=== PATIENT | male | born 1950 | race Caucasian/White ===

== ENCOUNTER 2019-11-11 20:49 | Observation (INO) | payer OTHER ==
[~2019-11-11 20:49] MED LIST: Iopamidol 370 76% 100 ML VIAL ONE
[2019-11-11 21:21] LABS: #Basophils 0.1 thou/uL (0.0-0.2); #Eosinphils 0.1 thou/uL (0.0-0.7); #Monocytes 1.2 thou/uL (0.11-0.59); #Neutrophils 7.7 thou/uL (1.40-6.50); %Basophils 0.5 % (0.0-1.0); %Eosinophils 0.9 % (0.0-10.0); %Lymphocytes 18.5 % (21.0-51.0); %Monocytes 10.8 % (0.0-10.0); %Neutrophils 69.3 % (42.0-75.0); Mean Corpuscular HGB CONC 32.4 g/dL (32.0-36.0); Mean Corpuscular Hemoglobin 27.7 pg (27.0-31.0); Mean Corpuscular Volume 85.7 fL (78.0-98.0); Mean Platelet Volume 8.9 fL (7.4-10.4); Platelet Count 262 thou/uL (130-400); RBC Distribution Width 13.1 % (11.5-14.5); Red Blood Cell (RBC) Count 5.04 mill/uL (4.70-6.10); White Blood Cell (WBC) Count 11.1 thou/uL (4.8-10.8)
[2019-11-11] MEDS ORDERED: Ketorolac Tromethamine 30 MG/ML VIAL ONE (21:23)
[2019-11-11 21:44] LABS: ALT (SGPT) 29 U/L (8-55); AST (SGOT) 40 U/L (5-34); Alkaline Phosphatase 70 U/L (40-110); Anion Gap 17 mmol/L (10-20); BUN (Urea Nitrogen) 18 mg/dL (8.4-25.7); Bilirubin, Total 0.6 mg/dL (0.2-1.2); Calc. Creatinine Clearance 0 mL/min (70-130); Calcium 10.3 mg/dL (7.8-10.44); Carbon Dioxide 24 mmol/L (23-31); Chloride 101 mmol/L (98-107); Estimated GFR-MDRD 35; Globulin 3.5 g/dL (2.4-3.5); Glucose 121 mg/dL (80-115); Potassium 4.1 mmol/L (3.5-5.1); Protein, Total 7.5 g/dL (5.8-8.1); Sodium 138 mmol/L (136-145)
[2019-11-11 21:52] LABS: Magnesium 1.8 mg/dL (1.6-2.6)
--- NOTE | 2019-11-11 22:09 | CT ---
CT abdomen and pelvis with IV contrast HISTORY: Abdominal pain. FINDINGS: Tiny nonspecific subpleural nodule at the right anterolateral lung base. Tiny nonspecific c ystic lesion within the right liver lobe. No evidence of urinary tract abnormalities. No evidence of bowel obstruction or inflammation. Nonenlarged, nonspecific lymph nodes are present throughout the retroperitoneum. Degenerative changes throughout the lumbar spine. Calcification throughout the arterial structures. IMPRESSION : No acute abnormalities are demonstrated. Atherosclerosis.
[2019-11-11 22:10] LABS: CKMB 2.4 ng/mL (0-6.6)
--- NOTE | 2019-11-11 22:25 | PDOC.FPRHP ---
- History of Present Illness Chief Complaint: dizziness, presyncope History of Present Illness: 69yo CM with h/o IDDMII, CAD s/p CABG 2008 presents for dizziness and presyncope. 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 At about 1400 he had onset of dizziness/ lightheadedness. Rested and drank some fluids and then kept working. At about 1600 he stopped for the day and had worsening dizziness/lightheadedness and feeling like he was about to pass out. Went home and check BP, was 79/58 with HR 131. Rested and drank fluids and BP improved to 95/79. Sxs persisted so he called the [facility] who told him to come in to be seen. Denies any associated CP, SOB, diaphoresis, n/v. Feels like his heart was beating fast. States onset of sxs similar but less severe from when he had MA and CABG in 2008 and no associated pain. He was staying out of town 4 weeks ago and had onset of diarrhea, went to ED, given IVF. Since that time he has continued to have 3-4, loose, watery BM daily; sometimes unable to make it to the restroom in time. Currently on a 1wk course of antibiotics for infected toenail from [place]. ED Course: Give 1L NS with improvement of HR and BP. - Allergies/Adverse Reactions Allergies Allergy/AdvReac Type Severity Reaction Status Date / Time No Known Drug Allergies Allergy Verified 11/12/19 02:12 - Home Medications Medication Instructions Recorded Confirmed Type Atorvastatin Calcium 20 mg PO HS 11/11/19 11/11/19 History Clopidogrel Bisulfate [Plavix] 75 mg PO DAILY 11/11/19 11/11/19 History Cyclobenzaprine [Flexeril] 10 mg PO TID PRN 11/11/19 11/11/19 History Ferrous Sulfate 325 mg PO DAILY 11/11/19 11/11/19 History HYDROcodone/Acetaminophen [[place] 1 each PO Q6H PRN 11/11/19 11/11/19 History 10-325 Tablet] Insulin Glargine,Hum.Rec.Anlog 45 units SQ HS 11/11/19 11/12/19 History [Lantus] Mirtazapine 7.5 mg PO DAILY 11/11/19 11/11/19 History Venlafaxine HCl [Venlafaxine HCl 150 mg PO QAM 11/11/19 11/11/19 History ER] Insulin Glargine [Lantus Vial] 55 units SC HS vial 11/12/19 Rx Liraglutide [Victoza 3-Jono] 1.2 mg SC DAILY 11/12/19 11/12/19 History Tamsulosin HCl [Flomax] 0.4 mg PO DAILY 11/12/19 11/12/19 History - History PMHx: IDDMII, Depression, CAD, PVD, HTN, WPW s/p ablation PSHx: 4v CABG 2009, R carotid endarterectomy 2015, L knee, R carpal tunnel FHx: Dad of CVA Social: No tob, illicits, etoh. . Lives with , daughter, and son-in- law. - Review of Systems General: denies: fever/chills, weight/appetite/sleep changes, night sweats, fatigue Eyes: reports: vision changes ENT: denies: nasal congestion, rhinorrhea Respiratory: denies: cough, congestion, shortness of breath, exercise intolerance Cardiovascular: reports: palpitation. denies: chest pain, edema, paroxysmal nocturnal dyspnea, orthopnea Gastrointestinal: reports: diarrhea. denies: nausea, vomiting, constipation, abdominal pain Genitourinary: denies: incontinence, dysuria Skin: denies: rashes Musculoskeletal: reports: pain (chronic back pain) Neurological: reports: numbness (chronic peripherla neuropathy) Psychological: reports: depression (chronic, stable) - Vital signs BP: 93/57 -> 120/58 HR: 84 RR: 20 Tmax: 97.8 Pox: 98% on RA Wt: 106kg - Physical Exam Constitutional: NAD, awake, alert and oriented, well developed HEENT: normocephalic and atraumatic, EOMI, conjunctiva clear, no scleral icterus , grossly normal vision, grossly normal hearing, MMM Neck: supple, trachea midline Chest: no-tender to palpation Heart: RRR, normal S1/S2, no edema Lungs: CTAB, no respiratory distress, good air movement, no rales/rhonchi, no wheezing Abdomen: soft, bowel sounds present, no masses/distention, other (mild diffuse light palation, no rebound/guarding. Neg torrez sign.) Musculoskeletal: normal structure, normal tone Neurological: no focal deficit, other (decreased senstation to touch BL LE) Skin: no rash/lesions, other (multiple toenails on each foot removed, no erythema/drainage, warmth. Mild TTP) Heme/Lymphatic: no unusual bruising or bleeding Psychiatric: normal mood and affect, good judgment and insight, intact recent and remote memory FMR H&P: Results - Labs Result Diagrams: 11/12/19 03:20 11/12/19 13:50 Lab results: WBC 11.1 thou/uL (4.8-10.8) H 11/11/19 21:10 Hgb 14.0 g/dL (14.0-18.0) 11/11/19 21:10 Hct 43.2 % (42.0-52.0) 11/11/19 21:10 MCV 85.7 fL (78.0-98.0) 11/11/19 21:10 Plt Count 262 thou/uL (130-400) 11/11/19 21:10 Neutrophils % 69.3 % (42.0-75.0) 11/11/19 21:10 Sodium 138 mmol/L (136-145) 11/11/19 21:10 Potassium 4.1 mmol/L (3.5-5.1) 11/11/19 21:10 Chloride 101 mmol/L (98-107) 11/11/19 21:10 Carbon Dioxide 24 mmol/L (23-31) 11/11/19 21:10 BUN 18 mg/dL (8.4-25.7) 11/11/19 21:10 Creatinine 1.92 mg/dL (0.7-1.3) H 11/11/19 21:10 Glucose 121 mg/dL (80-115) H 11/11/19 21:10 Calcium 10.3 mg/dL (7.8-10.44) 11/11/19 21:10 Total Bilirubin 0.6 mg/dL (0.2-1.2) 11/11/19 21:10 AST 40 U/L (5-34) H 11/11/19 21:10 ALT 29 U/L (8-55) 11/11/19 21:10 Alkaline Phosphatase 70 U/L (40-110) 11/11/19 21:10 CK-MB (CK-2) 2.4 ng/mL (0-6.6) 11/11/19 21:20 B-Natriuretic Peptide 27.2 pg/mL (0-100) 11/11/19 21:10 Serum Total Protein 7.5 g/dL (5.8-8.1) 11/11/19 21:10 Albumin 4.0 g/dL (3.4-4.8) 11/11/19 21:10 Lipase 30 U/L (8-78) 11/11/19 21:10 - EKG Interpretation EKG: QTC 502, RBBB, 1st degree AV block, LA 400, no acute ST or T wave changes. - Radiology Interpretation CT scan - pelvis Status: report reviewed by me (no acute process) FMR H&P: A/P - Problem List (1) Pre-syncope Status: Acute (2) Elevated troponin Status: Acute Code(s): R79.89 - OTHER SPECIFIED ABNORMAL FINDINGS OF BLOOD CHEMISTRY (3) CAD (coronary artery disease) Status: Chronic Code(s): I25.10 - ATHSCL HEART DISEASE OF [place] CORONARY ARTERY W/O ANG PCTRS Qualifiers: Coronary Disease-Associated Artery/Lesion type: bypass graft Associated angina: without angina (4) PVD (peripheral vascular disease) Status: Chronic Code(s): I73.9 - PERIPHERAL VASCULAR DISEASE, UNSPECIFIED (5) DMII (diabetes mellitus, type 2) Status: Chronic Qualifiers: Diabetes mellitus mcc 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 #Presyncope - suspected orthostatic hypotension 2/2 dehydration from working outside and GI loss - BP improved with 1L NS in ED - Will cont IVF of LR @125cc/hr - obtain orthostatic vitals - fall precautions - will check TSH - hold home BP meds and other medications that can contribute to dizziness - possibly 2/2 polypharmacy #Indeterminate trop - Trop 0.105 - no baseline for comparison - h/o CAD and suspected CKDIII - likely troponin leak and chronic elevation - will trend trops, monitor on tele - consider cards consult in AM vs stress test #Chronic diarrhea - Diarrhea x4 weeks, history suspicions of onset of viral gastroenteritis that has since persisted - states had stool studies at onset that were negative - afebrile, diffuse tender abdomen but no acute exam findings - will order stool studies - Lytes stable, lipase negative #YOHAN vs CKD IIIb - Suspect CKDIIIb - Cr 1.92, GFR 35 - cont IVF and monitor, renally dose medications and avoid nephrotoxic meds - will check CPK #Prolonged QT - QTc 502, avoid QT prolonging meds #1st degree heart block - Associated RBB, suspected chronic with heart history - monitor on tele - history of WPW, s/p ablation #IDDMII - Lantus 55u QHS - Mild SS, ACHS accuchecks, hyperglycemic protocol #Depression - On mirtazapine and venlaflaxine - consider deesclatation and could contribute to dizziness and can contribute to QT prolongation #CAD s/p CABG, PVD - CABG 2008 - Cont plavix PCP: [facility] Code: Full IVF: LR @ 125cc/hr Diet: NPO @ [place] VTE: lovenox Disposition/LOS: Admit to tele obs for presyncope. Workup pending. Anticipate LOS < 48hrs. FMR H&P: Upper Level - Plan Date/Time: 11/11/19 8314 IKirill DO, have evaluated this patient and agree with findings/ plan as outlined by electrical engineering intern resident. Pertinent changes/additions are listed here. 69 yo M wi pmh of CAD s/p cabg in and HTN who presents after working outside for an extended period and becoming dizzy. No syncope. Labs show elevated cr. Pt reports resolution of symptoms after IVF. Will cont IVF and trend troponins. Expected LOS <48 hrs. Addendum - Attending - Attending Attestation Date/Time: 11/14/19 6439 I personally evaluated the patient and discussed the management with Dr. Salamanca on 11/11/19. I agree with the History, Examination, Assessment and Plan documented above with any addition or exceptions noted below. IDDMII, Depression, CAD, PVD, HTN, WPW s/p ablation here with presyncope and dizziness improved with IVF. Observe for dysrhythmia, cardiovascular causes for hypotension and symptoms.
[2019-11-12 01:04] LABS: Troponin I 0.107 ng/mL (< 0.028)
[2019-11-12] MEDS ORDERED: Lactated Ringer's 1,000 ML IV SCH (02:05)
[2019-11-12] MEDS ORDERED: Acetaminophen 325 MG TAB PO PRN (02:05)
[2019-11-12] MEDS ORDERED: Calcium Carbonate 500 MG ChewTAB PO PRN (02:05)
[2019-11-12] MEDS ORDERED: Dextrose 5% in Water 1,000 ML IV PRN (02:05)
[2019-11-12] MEDS ORDERED: HumaLOG 300 UNITS/3 ML VIAL SC PRN ×2 (02:05)
[2019-11-12] MEDS ORDERED: Dextrose 50% Abboject 50 ML SYRINGE SLOW IVP PRN (02:05)
[2019-11-12 02:30] VITALS: BMI 34.6
[2019-11-12] MEDS ORDERED: Mirtazapine 15 MG TAB PO SCH ×2 (02:30→21:00)
[2019-11-12 03:30] LABS: #Eosinphils 0.2 thou/uL (0.0-0.7); #Monocytes 0.5 thou/uL (0.11-0.59); #Neutrophils 4.1 thou/uL (1.40-6.50); %Basophils 0.6 % (0.0-1.0); %Eosinophils 2.8 % (0.0-10.0); %Lymphocytes 29.3 % (21.0-51.0); %Monocytes 7.2 % (0.0-10.0); %Neutrophils 60.1 % (42.0-75.0); Hemoglobin 13.5 g/dL (14.0-18.0); Mean Corpuscular HGB CONC 31.1 g/dL (32.0-36.0); Mean Corpuscular Hemoglobin 27.3 pg (27.0-31.0); Mean Corpuscular Volume 87.7 fL (78.0-98.0); Mean Platelet Volume 8.8 fL (7.4-10.4); Platelet Count 231 thou/uL (130-400); RBC Distribution Width 13.2 % (11.5-14.5); Red Blood Cell (RBC) Count 4.95 mill/uL (4.70-6.10); White Blood Cell (WBC) Count 6.9 thou/uL (4.8-10.8)
[2019-11-12 03:37] LABS: Hemoglobin A1c 6.8 % (4.0-6.0)
[2019-11-12 03:51] LABS: ALT (SGPT) 27 U/L (8-55); AST (SGOT) 35 U/L (5-34); Albumin 3.8 g/dL (3.4-4.8); Alkaline Phosphatase 69 U/L (40-110); Anion Gap 13 mmol/L (10-20); BUN (Urea Nitrogen) 20 mg/dL (8.4-25.7); Bilirubin, Total 0.6 mg/dL (0.2-1.2); Calc. Creatinine Clearance 62 mL/min (70-130); Calcium 9.6 mg/dL (7.8-10.44); Carbon Dioxide 28 mmol/L (23-31); Cardiac Risk 4.2 (Less than 4.5); Chloride 100 mmol/L (98-107); Cholesterol 130 mg/dl (< 200 Desired); Estimated GFR-MDRD 38; Globulin 3.3 g/dL (2.4-3.5); Glucose 187 mg/dL (80-115); HDL Cholesterol 31 mg/dL (>60 Neg Risk); LDL Cholesterol, Calculated 63 mg/dL; Potassium 4.4 mmol/L (3.5-5.1); Protein, Total 7.1 g/dL (5.8-8.1); Sodium 137 mmol/L (136-145); Triglycerides 179 mg/dL (Less than 150)
--- NOTE | 2019-11-12 06:51 | PDOC.FM ---
- Subjective Subjective: Was able to fall asleep this morning around 4am. Feeling better after IVF. Denies SOB, chest pain. He is currently on oxygen via nasal cannula due to his ROSINA, he wears a CPAP at night at home. No presyncopal episodes since admission. - Objective MAR Reviewed: Yes Vital Signs & Weight: Vital Signs (12 hours) Pulse BP BP BP 11/12/19 04:32 57 L 136/77 129/60 154/65 H Weight Weight 109.406 kg Result Diagrams: 11/12/19 03:20 11/12/19 03:20 Phys Exam - Physical Examination Constitutional: NAD HEENT: moist MMs Neck: supple Respiratory: no wheezing, clear to auscultation bilateral Cardiovascular: RRR, no significant murmur Gastrointestinal: soft, non-tender Musculoskeletal: no edema Neurological: moves all 4 limbs Psychiatric: normal affect, A&O x 3 Skin: no rash Dx/Plan - Plan Plan: 69yo male with pmh IDDMII, CAD s/p CABG 2008 presents for dizziness and presyncope. Presyncope likely 2/2 orthostatic hypotension and dehydration - LR @125cc/hr - holding home BP meds - Recheck Cr later today, if asymptomatic can discharge home. Indeterminate trop - Trop 0.105, 0.1 - EKG no signs of ischemia - h/o CAD Chronic diarrhea - Diarrhea x4 weeks, history suspicions of onset of viral gastroenteritis that has since persisted - Ordered stool studies YOHAN vs CKD IIIb - Cont IVF and monitor, renally dose medications and avoid nephrotoxic meds Prolonged QT - QTc 502, avoid QT prolonging meds 1st degree heart block - Associated RBB, suspected chronic with heart history - history of WPW, s/p ablation IDDMII - Lantus 55u qHS - Mild SS, ACHS accuchecks, hyperglycemic protocol Depression - On mirtazapine and venlaflaxine CAD s/p CABG, PVD - CABG 2008 - Continue plavix PCP: [facility] Code Status: Full DVT ppx: Lovenox Addendum - Attending - Attending Attestation Date/Time: 11/12/19 1040 I personally evaluated the patient and discussed the management with Dr. Queen. I agree with the History, Examination, Assessment and Plan documented above with any addition or exceptions noted below - Patient feeling better. No further dizziness. Afebrile VSS. A/P: 1) YOHAN- continue IVF. recheck basmet later today. Encourage po intake. 2) Indeterminate troponins- most likely due to elevated Cr. 3) DM- continue home meds.
[2019-11-12] MEDS ORDERED: Venlafaxine HCl XR 150 MG CAP PO SCH (09:00)
[2019-11-12] MEDS ORDERED: Liraglutide [Victoza 3-Pak] 1.2 MG SC SCH (09:00)
[2019-11-12] MEDS ORDERED: Clopidogrel Bisulfate 75 MG TAB PO SCH (09:00)
[2019-11-12] MEDS ORDERED: Prevnar 13-Val Conj/PF 0.5 ML SYRINGE IM ONE (09:00)
[2019-11-12] MEDS ORDERED: Enoxaparin Sodium 30 MG/0.3 ML SYRINGE SC SCH (09:00)
[2019-11-12 11:42] VITALS: BP 144/64; TEMP 97.9
[2019-11-12 14:20] LABS: Anion Gap 12 mmol/L (10-20); BUN (Urea Nitrogen) 20 mg/dL (8.4-25.7); Calc. Creatinine Clearance 78 mL/min (70-130); Carbon Dioxide 28 mmol/L (23-31); Chloride 100 mmol/L (98-107); Estimated GFR-MDRD 49; Glucose 173 mg/dL (80-115); Sodium 136 mmol/L (136-145)
[2019-11-12] MEDS ORDERED: Insulin Glargine 55 UNITS in Pre-Filled Syringe 1 EACH SC SCH (21:00)
[2019-11-12] MEDS ORDERED: Atorvastatin Calcium 20 MG TAB PO SCH (21:00)
--- NOTE | 2019-11-14 02:12 | DIS ---
DATE OF ADMISSION: 11/11/2019 DATE OF DISCHARGE: 11/12/2019 RESIDENT: Kandis Queen MD, PGY-2. ADMITTING ATTENDING: Simona Borden MD DISCHARGE ATTENDING: Simona Borden MD CONSULTS: None. PROCEDURES PERFORMED: Abdomen and pelvis CT 11/11/2019, no acute abnormalities demonstrated. PRIMARY DIAGNOSES: 1. Presyncope, likely secondary to orthostatic hypotension and dehydration. 2. Indeterminate troponin. 3. Acute kidney injury. SECONDARY DIAGNOSES: 1. Chronic diarrhea. 2. Prolonged QT. 3. First-degree heart block. 4. Insulin-dependent type 2 diabetes. 5. Depression. 6. Coronary artery disease status post coronary artery bypass grafting DISCHARGE MEDICATIONS: 1. Atorvastatin 20 mg at bedtime. 2. Plavix 75 mg daily. 3. Flexeril 10 mg t.i.d. 4. Ferrous sulfate 325 daily. 5. [place] 10-325 q.6 hours p.r.n. 6. Insulin glargine 55 units at bedtime. 7. Victoza 1.2 mg subcu daily. 8. Mirtazapine 7.5 mg daily. 9. Tamsulosin 0.4 mg daily. 10. Venlafaxine 150 mg q.a.m. DISCONTINUED MEDICATIONS: Insulin 45 units daily. HISTORY OF PRESENT ILLNESS/HOSPITAL COURSE: Mr. Owens is a 69-year-old male, who presented with dizziness and presyncope after working outside in the heat all day. He had no concerning symptoms of coronary cause of his presyncope. He was given 1 L normal saline in the ED with improvement of heart rate and blood pressure as he was initially hypotensive and tachycardic. His blood pressure on admission was 120/58. His labs at admission were notable for creatinine 1.92, 1.43 at discharge. Noted to have a normal TSH. His initial troponin was 0.105, 0.1. He was continued on IV fluids of LR at 125 and was tolerating oral hydration well. Orthostatics were negative and he was able to ambulate without symptoms prior to discharge. His blood pressure medications were held and he can follow up with primary care doctor to restart these. Next, indeterminate second troponin trended down. His EKG was notable for a first-degree heart block and a prolonged QT. His YOHAN initially had creatinine 1.92. After rehydration, this improved. Recommend rechecking outpatient within 2 weeks of discharge. He was noted to have a prolonged QT and first-degree heart block with associated right bundle branch block. His was monitored on tele. He does have a history of [id number]-Nhrgj, status post ablation. In regard to his chronic medical problems of diabetes, depression and coronary artery disease, he was continued on home medication. He had also been having loose stools for four weeks. However, he did not have a stool during hospitalization. Therefore, stool studies were never collected and precautions were discontinued as he was not having diarrhea. DISPOSITION: Stable. DISCHARGE INSTRUCTIONS: 1. Location: Home. 2. Diet: Heart healthy, carb consistent. 3. Activity: Avoid strenuous outdoor activity to maintain hydration and encourage p.o. hydration. 4. Followup: Follow up with PCP at the [facility] within 7 days. Job ID: [id number] MTDD
--- NOTE | 2019-11-19 11:53 | EKG ---
Test Reason : Blood Pressure : / mmHG Vent. Rate : 104 BPM Atrial Rate : 104 BPM P-R Int : 000 ms QRS Dur : 142 ms QT Int : 382 ms P-R-T Axes : 071 -66 069 degrees QTc Int : 502 ms Sinus tachycardia with 1st degree A-V block Right bundle branch block Left anterior fascicular block Bifascicular block Abnormal ECG Confirmed by JOSE ANGEL KUMARI ([id number]), editor magazine AN HUNTLEY ([id number]) on 11/19/2019 11:52:50 AM Referred By: Confirmed By:JOSE ANGEL Ortega
== END 2019-11-12 15:43 | disposition home or self-care (01) ==
LOC: ERS 20:49 → 2SE 22:25
PROVIDERS: ADMIT Family Medicine; ATTEND Family Medicine
DX: R55 Syncope and collapse (principal); R79.89 Other specified abnormal findings of blood chemistry; N17.9 Acute kidney failure, unspecified; E11.9 Type 2 diabetes mellitus without complications; I25.10 Atherosclerotic heart disease of native coronary artery without angina pectoris; I44.0 Atrioventricular block, first degree; I73.9 Peripheral vascular disease, unspecified; K52.9 Noninfective gastroenteritis and colitis, unspecified; F32.9 Major depressive disorder, single episode, unspecified; Z79.4 Long term (current) use of insulin; Z79.899 Other long term (current) drug therapy; Z95.1 Presence of aortocoronary bypass graft
CPT/HCPCS: 36415; 36416; 74177; 80053; 80061; 82550; 82553; 83036; 83690; 83735; 83880; 84443; 84484; 85025; 93005; 94760; 96361; 96374; G0378; J1815; J1885; Q9967

== ENCOUNTER 2019-11-29 11:21 | Observation (INO) | payer MEDICARE, OTHER ==
[2019-11-29 12:14] LABS: #Basophils 0.1 thou/uL (0.0-0.2); #Eosinphils 0.2 thou/uL (0.0-0.7); #Lymphocytes 1.4 thou/uL (1.20-3.40); #Monocytes 0.6 thou/uL (0.11-0.59); #Neutrophils 4.1 thou/uL (1.40-6.50); %Eosinophils 3.7 % (0.0-10.0); %Lymphocytes 22.5 % (21.0-51.0); %Monocytes 8.8 % (0.0-10.0); %Neutrophils 63.9 % (42.0-75.0); Hemoglobin 12.5 g/dL (14.0-18.0); Mean Corpuscular HGB CONC 30.8 g/dL (32.0-36.0); Mean Corpuscular Hemoglobin 27.1 pg (27.0-31.0); Mean Corpuscular Volume 87.9 fL (78.0-98.0); Mean Platelet Volume 8.3 fL (7.4-10.4); Platelet Count 228 thou/uL (130-400); RBC Distribution Width 13.1 % (11.5-14.5); Red Blood Cell (RBC) Count 4.61 mill/uL (4.70-6.10); White Blood Cell (WBC) Count 6.4 thou/uL (4.8-10.8)
--- NOTE | 2019-11-29 12:15 | RAD ---
EXAM: CHEST ONE VIEW HISTORY: Dyspnea. Abnormal EKG COMPARISON: 03/26/2012 FINDINGS: Postoperative changes related to CABG are noted. Cardiac silhouette is magnified by projection but do es appear mildly enlarged. The pulmonary vasculature is within normal limits. The lungs are clear. Mild degenerative changes are seen in the spine. Surgical clips overlie the right neck. IMPRESSION: 1. Mild cardiomegaly. 2. No acute cardiopulmonary process.
[2019-11-29 12:36] LABS: ALT (SGPT) 14 U/L (8-55); AST (SGOT) 24 U/L (5-34); Albumin 3.9 g/dL (3.4-4.8); Alkaline Phosphatase 73 U/L (40-110); Anion Gap 11 mmol/L (10-20); BUN (Urea Nitrogen) 7 mg/dL (8.4-25.7); Bilirubin, Total 0.9 mg/dL (0.2-1.2); Calc. Creatinine Clearance 0 mL/min (70-130); Calcium 8.9 mg/dL (7.8-10.44); Carbon Dioxide 28 mmol/L (23-31); Chloride 104 mmol/L (98-107); Estimated GFR-MDRD 70; Globulin 3.5 g/dL (2.4-3.5); Glucose 112 mg/dL (80-115); Potassium 3.9 mmol/L (3.5-5.1); Protein, Total 7.4 g/dL (5.8-8.1); Sodium 139 mmol/L (136-145)
--- NOTE | 2019-11-29 13:21 | PDOC.FPRHP ---
- History of Present Illness Chief Complaint: SOB with Exertion History of Present Illness: 69yo CM with h/o IDDMII, CAD s/p CABG 2008 presents for SOB with exertion for the last couple of days. He says he started feeling short of breath Thursday & Thursday, but it has somewhat improved today. He says he feels short of breath just walking a few feet. He [facility] to go to [facility], but they were not taking acute visits so he went to an urgent care. He was seen at an urgent care earlier today and had and EKG and chest xray. There they noted he had small bilateral effusions and told him to come to the ER. ED Course: In the ED, Cxray showed Cardiomegaly. Trop was 0.033, BNP was 235.5, and Hgb was 12.5. He was given ASA & a nitro patch. - Allergies/Adverse Reactions Allergies Allergy/AdvReac Type Severity Reaction Status Date / Time No Known Drug Allergies Allergy Verified 11/12/19 02:12 - Home Medications Medication Instructions Recorded Confirmed Type Atorvastatin Calcium 20 mg PO HS 11/11/19 11/29/19 History Clopidogrel Bisulfate [Plavix] 75 mg PO DAILY 11/11/19 11/29/19 History Cyclobenzaprine [Flexeril] 10 mg PO TID PRN 11/11/19 11/29/19 History Mirtazapine 7.5 mg PO HS 11/11/19 11/29/19 History Venlafaxine HCl [Venlafaxine HCl 150 mg PO QAM 11/11/19 11/29/19 History ER] Liraglutide [Victoza 3-Jono] 1.2 mg SC DAILY 11/12/19 11/29/19 History Tamsulosin HCl [Flomax] 0.4 mg PO DAILY 11/12/19 11/29/19 History Acetaminophen 500 mg PO TID PRN 11/29/19 11/29/19 History Blood Sugar Diagnostic [True 1 strip SC ACHS 11/29/19 11/29/19 History Metrix Pro Test Strip] Cholecalciferol [Vitamin D3] 4,000 units PO DAILY 11/29/19 11/29/19 History Cyanocobalamin (Vitamin B-12) 1,000 mcg PO DAILY 11/29/19 11/29/19 History [Vitamin B-12] Ferrous Sulfate [Iron] 325 mg PO DAILY 11/29/19 11/29/19 History HYDROcodone/Acetaminophen 1 tab PO Q6H PRN 11/29/19 11/29/19 History [Hydrocodone-Acetamin 10-325 mg] Insulin Glargine [Lantus] 45 units SC HS 11/29/19 11/29/19 History Lidocaine 5% Patch [Lidoderm 5% 1 patch TD DAILY 11/29/19 11/29/19 History Patch] Melatonin 10 mg PO HS 11/29/19 11/29/19 History Metoprolol Tartrate 50 mg PO HS 11/29/19 11/29/19 History - History PMHx: DMII, Depression, CAD, PVD, HTN, WPW s/p ablation PSHx: 4-vessel CABG 2008, Right carotid endarterectomy 2014, L knee, R carpal tunnel, Ablation for WPW FHx: Dad of CVA Social: No tobacco, alcohol, or recreational drugs. . Lives with , daughter, and son-in-law. - Review of Systems General: denies: fever/chills Eyes: denies: vision changes ENT: denies: nasal congestion, rhinorrhea Respiratory: reports: shortness of breath. denies: cough, congestion Cardiovascular: reports: chest pain, edema, orthopnea. denies: paroxysmal nocturnal dyspnea Gastrointestinal: denies: nausea, vomiting, diarrhea, constipation, abdominal pain Skin: denies: rashes, lesions Musculoskeletal: denies: pain, tenderness Neurological: reports: numbness (in the bottom of his feet). denies: weakness Psychological: reports: depression - Vital signs BP: 162/62 HR: 62 RR: 18 Tmax: 98.2 Pox: 100% on RA Wt: 111.13 kg - Physical Exam Constitutional: NAD, awake, alert and oriented HEENT: normocephalic and atraumatic, PERRLA, EOMI, conjunctiva clear, no scleral icterus, MMM, oropharynx clear, good dention Neck: no LAD -Neck: Limited ROM of the neck Heart: RRR, normal S1/S2, no murmurs/rubs/gallops, pulses present -Heart: 1+ pitting edema Lungs: CTAB, no respiratory distress, good air movement, no rales/rhonchi, no wheezing, no retractions Abdomen: soft, non-tender, bowel sounds present Musculoskeletal: normal structure, normal tone Neurological: CN II-XII intact, normal sensation Skin: no rash/lesions, good turgor Heme/Lymphatic: no unusual bruising or bleeding, no purpura, no petechia Psychiatric: normal mood and affect FMR H&P: Results - Labs Result Diagrams: 11/29/19 12:07 11/30/19 01:59 Lab results: WBC 6.4 thou/uL (4.8-10.8) 11/29/19 12:07 Hgb 12.5 g/dL (14.0-18.0) L 11/29/19 12:07 Hct 40.5 % (42.0-52.0) L 11/29/19 12:07 MCV 87.9 fL (78.0-98.0) 11/29/19 12:07 Plt Count 228 thou/uL (130-400) 11/29/19 12:07 Neutrophils % 63.9 % (42.0-75.0) 11/29/19 12:07 Sodium 139 mmol/L (136-145) 11/29/19 12:07 Potassium 3.9 mmol/L (3.5-5.1) 11/29/19 12:07 Chloride 104 mmol/L (98-107) 11/29/19 12:07 Carbon Dioxide 28 mmol/L (23-31) 11/29/19 12:07 BUN 7 mg/dL (8.4-25.7) L 11/29/19 12:07 Creatinine 1.06 mg/dL (0.7-1.3) 11/29/19 12:07 Glucose 112 mg/dL (80-115) 11/29/19 12:07 Calcium 8.9 mg/dL (7.8-10.44) 11/29/19 12:07 Total Bilirubin 0.9 mg/dL (0.2-1.2) 11/29/19 12:07 AST 24 U/L (5-34) 11/29/19 12:07 ALT 14 U/L (8-55) 11/29/19 12:07 Alkaline Phosphatase 73 U/L (40-110) 11/29/19 12:07 CK-MB (CK-2) 2.0 ng/mL (0-6.6) 11/29/19 12:07 B-Natriuretic Peptide 235.5 pg/mL (0-100) H 11/29/19 12:07 Serum Total Protein 7.4 g/dL (5.8-8.1) 11/29/19 12:07 Albumin 3.9 g/dL (3.4-4.8) 11/29/19 12:07 - EKG Interpretation EKG: RBBB, Left axis deviation FMR H&P: A/P - Problem List (1) Heart failure Current Visit: Yes Status: Acute Code(s): I50.9 - HEART FAILURE, UNSPECIFIED (2) Elevated troponin Current Visit: No Status: Acute Code(s): R79.89 - OTHER SPECIFIED ABNORMAL FINDINGS OF BLOOD CHEMISTRY (3) CAD (coronary artery disease) Current Visit: No Status: Chronic Code(s): I25.10 - ATHSCL HEART DISEASE OF [place] CORONARY ARTERY W/O ANG PCTRS Qualifiers: Coronary Disease-Associated Artery/Lesion type: bypass graft Associated angina: without angina (4) DMII (diabetes mellitus, type 2) Current Visit: No Status: Chronic 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 use Diabetes mellitus complication status: with kidney complications Diabetes mellitus complication detail: with chronic kidney disease Chronic kidney disease stage : stage 3 (moderate) Qualified Code(s): E11.22 - Type 2 diabetes mellitus with diabetic chronic kidney disease; N18.3 - Chronic kidney disease, stage 3 ( moderate); 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 1. Suspected HF SOB with exertion, Orthopnea, 1+ pitting Edema * IV Lasix 20 mg * Strict I&Os, daily weights * HHLSo diet * ECHO ordered 2.Indeterminate trop Trop 0.033 (last admission 0.105) * H/o CAD with CABG in 2008 * Nonspecific CP: substernal CP that resolved without radiation and no change with nitro * Will trend trops, monitor on tele * Lipid Panel & TSH done last visit wnl 3. DMII Continue home medications: Lantus 55u QHS * Mild SS, ACHS accuchecks, hyperglycemic protocol 4. Depression Continue home medications: Mirtazapine and Venlaflaxine 5. CAD s/p CABG, PVD CABG 2008 * Continue home medications: Plavix, Atorvastatin, & Metoprolol * Started ASA 6. Chronic Pain Continue home medication: [place] 10 Code Status: Full IVF: LR @ 125cc/hr Diet: HHLSo with CC VTE: lovenox [facility] Dispo: Admit to tele obs for suspected new onset heart failure. Await ECHO results. LOS < 48hrs. FMR H&P: Upper Level - Plan Date/Time: 11/29/19 1320 I, Emily Echols, have evaluated this patient and agree with findings/plan as outlined by internet programmer resident. Pertinent changes/additions are listed here. 69 yo M with PMH CAD s/p CABG and IDDM2 presents for SOB present x3 days. SOB present with nearly any amount of exertion, including walking to bathroom. Denies SOB at rest. Symptoms started to improve yesterday. [facility] be seen at urgent care. There had CXR with small b/l pleural effusions and was sent here. He was swabbed for COVID at that facility. Notes he had mild intermittent chest pains associated with his SOB. Has not had any CP since earlier this morning. No N, V, D, abdominal pain, diaphoresis. 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 Patient unsure of name. Has appt in 2-3 days for yearly checkup with plan for echo and stress at that appt. Discharged earlier this month, admitted for near syncope 2/2 dehydration. Since then ARB discontinued and restarted metoprolol. Given ASA and nitro patch in ED PMH: IDDM2, depression, CAD s/p CABG, chronic diarrhea, 1st degree heart block, prolonged QT, PVD, HTN, WPW s/p ablation Surg: CABG x4 2009, R carotid endarterectomy 2015, L knee, R carpal tunnel Famhx: Father of CVA Social: no tobacco,alcohol, drug use VS: 162/62, 18, 98.2, 100% on RA, 62 CXR: mild cardiomegaly EK, QTc 476, RBBB, 1st degree AV block, bifascicular block PE: Gen: NAD HEENT: limited cervical motion Heart: RRR, no murmur Lungs: CTAB Ext: 1+ pitting edema BLE up to knee Concern for new onset CHF - SOB w/ exertion with cardiomegaly on CXR. No hypoxia. - BNP elevated 235 (was 27 last admission) - Echo ordered - Lipids, TSH, A1c ordered on last admission and wnl - give 20mg IV lasix and reassess volume status in am. Monitor I/Os. - Has appt this week with foaming machine operator with plan for stress and echo Indeterminate troponin - 0.033 on admission, will trend. No chest pain or concern for ACS at this time. EKG similar to prior. - Was 0.1 on last admission, could have chronic leak CAD s/p CABG -Continue home Plavix, statin Chronic medical problems reviewed. Continue home medications. Diet: HH, CC Ppx: Lovenox IVF: SL Code: FULL Dispo: admit to telemetry for observation. Trend troponin and pending workup. Expected LOS <48hrs. Addendum - Attending - Attending Attestation Date/Time: 11/30/19 0905 I personally evaluated the patient and discussed the management with the team. I agree with the History, Examination, Assessment and Plan documented above with any addition or exceptions noted below. On exam seems to clinically be HF. Edema BLE, mild JVD, scant crackles in bilateral bases. Will diurese, perform TTE. Consider stress or cards consultation pending clinical course.
[2019-11-29] MEDS ORDERED: Nitroglycerin 2% Ointment 1 INCH/1 GM Packet ONE (13:24)
[2019-11-29] MEDS ORDERED: Aspirin Chewable 81 MG TAB ONE (13:24)
[2019-11-29] MEDS ORDERED: Ondansetron ODT 4 MG TAB PO PRN (14:26)
[2019-11-29] MEDS ORDERED: Calcium Carbonate 500 MG ChewTAB PO PRN (14:26)
[2019-11-29] MEDS ORDERED: Ondansetron PF 4 MG/2 ML Vial IVP PRN (14:26)
[2019-11-29] MEDS ORDERED: Senokot S 8.6-50 MG TAB PO PRN (14:26)
[2019-11-29] MEDS ORDERED: Acetaminophen 325 MG TAB PO PRN (14:26)
[2019-11-29] MEDS ORDERED: Dextrose 5% in Water 1,000 ML IV PRN (14:31)
[2019-11-29] MEDS ORDERED: HumaLOG 300 UNITS/3 ML VIAL SC PRN ×2 (14:31)
[2019-11-29] MEDS ORDERED: Dextrose 50% Abboject 50 ML SYRINGE SLOW IVP PRN (14:31)
[2019-11-29 16:13] LABS: Troponin I 0.023 ng/mL (< 0.028)
[2019-11-29] MEDS ORDERED: Cyclobenzaprine 10 MG TAB PO PRN (16:29)
[2019-11-29] MEDS ORDERED: HYDROcodone/Acetaminophen 10/325 mg Tablet PO PRN (16:29)
[2019-11-29 16:55] VITALS: BMI 35.8
[2019-11-29] MEDS: HumaLOG 300 UNITS/3 ML VIAL SC PRN (18:05)
[2019-11-29] MEDS: Insulin Glargine 55 UNITS in Pre-Filled Syringe 1 EACH SC SCH (21:30)
[2019-11-29] MEDS: Atorvastatin Calcium 20 MG TAB PO SCH (21:42)
[2019-11-29] MEDS ORDERED: Mirtazapine 15 MG TAB PO SCH (23:45)
[2019-11-30 02:35] LABS: Anion Gap 11 mmol/L (10-20); BUN (Urea Nitrogen) 14 mg/dL (8.4-25.7); Calc. Creatinine Clearance 109 mL/min (70-130); Calcium 8.2 mg/dL (7.8-10.44); Carbon Dioxide 27 mmol/L (23-31); Chloride 105 mmol/L (98-107); Estimated GFR-MDRD 70; Glucose 94 mg/dL (80-115); Potassium 3.8 mmol/L (3.5-5.1); Sodium 139 mmol/L (136-145)
[2019-11-30 02:54] LABS: CKMB 1.5 ng/mL (0-6.6)
--- NOTE | 2019-11-30 05:54 | PDOC.FM ---
- Subjective Subjective: He still feels short of breath this morning. He has not had BM in a couple of days. He denies any chest pain. He is tolerating PO intake well. He did not sleep well last night due to not having his CPAP. - Objective MAR Reviewed: Yes Vital Signs & Weight: Vital Signs (12 hours) Temp Pulse Resp BP BP Pulse Ox 11/30/19 04:00 97.6 F 62 16 126/61 96 11/30/19 00:00 97.6 F 66 16 151/73 H 93 L 11/29/19 20:00 98.7 F 59 L 16 140/72 93 L Weight Weight 113.398 kg I&O: 11/28/19 11/29/19 11/30/19 06:59 06:59 06:59 Intake Total 240 Balance 240 Result Diagrams: 11/29/19 12:07 11/30/19 01:59 EKG Reviewed by me: Yes (Sinus Kevin- Sinus Rhythm with 1st degree AVB) Phys Exam - Physical Examination Constitutional: NAD HEENT: moist MMs, sclera anicteric, oral pharynx no lesions Neck: no nodes, supple Respiratory: wheezing present Cardiovascular: RRR, no significant murmur, no rub Gastrointestinal: soft, non-tender, positive bowel sounds Musculoskeletal: pulses present Neurological: moves all 4 limbs Lymphatic: no nodes Psychiatric: normal affect Skin: no rash, normal turgor Dx/Plan (1) Heart failure Code(s): I50.9 - HEART FAILURE, UNSPECIFIED Status: Acute (2) Elevated troponin Code(s): R79.89 - OTHER SPECIFIED ABNORMAL FINDINGS OF BLOOD CHEMISTRY Status : Acute (3) CAD (coronary artery disease) Code(s): I25.10 - ATHSCL HEART DISEASE OF [place] CORONARY ARTERY W/O ANG PCTRS Status: Chronic Qualifiers: Coronary Disease-Associated Artery/Lesion type: bypass graft Associated angina: without angina (4) DMII (diabetes mellitus, type 2) Status: Chronic 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 1. Suspected HF SOB with exertion, Orthopnea, 1+ pitting Edema * IV Lasix 20 mg * Strict I&Os, daily weights * HHLSo diet * ECHO ordered 2.Indeterminate trop Trop 0.033 > 0.023 > 0.04 > 0.032 (last admission 0.105) * H/o CAD with CABG in 2008 * Nonspecific CP: substernal CP that resolved without radiation and no change with nitro * Lipid Panel & TSH done last visit wnl * He is scheduled for a Stress test outpatient with his road manager and was supposed to have an ECHO this week. 3. DMII Continue home medications: Lantus 55u QHS * Mild SS, ACHS accuchecks, hyperglycemic protocol 4. Depression Continue home medications: Mirtazapine and Venlaflaxine 5. CAD s/p CABG, PVD CABG 2008 * Continue home medications: Plavix, Atorvastatin, & Metoprolol * Started ASA 6. Chronic Pain Continue home medication: [place] 10 Code Status: Full IVF: SL Diet: HHLSo with CC VTE: lovenox PCP: [facility] Dispo: Tele obs for suspected new onset heart failure. Will get ECHO results and based upon that we will consult Cardiology. LOS < 48hrs. Addendum - Attending - Attending Attestation Date/Time: 11/30/19 8995 I personally evaluated the patient and discussed the management with Dr. Salamanca. I agree with the History, Examination, Assessment and Plan documented above with any addition or exceptions noted below. Patient denies complaints this morning, reports breathing overall stable. Increased BNP from baseline. Echo today and further mgmt pending that result. I do not see that he has ever had stress testing before so that may be needed.
[2019-11-30] MEDS ORDERED: Furosemide 20 MG/2 ML VIAL SLOW IVP SCH (06:00)
[2019-11-30] MEDS: Clopidogrel Bisulfate 75 MG TAB PO SCH (08:48)
[2019-11-30] MEDS: Venlafaxine HCl XR 150 MG CAP PO SCH (08:48)
[2019-11-30] MEDS: Aspirin Chewable 81 MG TAB PO SCH (08:48)
[2019-11-30] MEDS: Tamsulosin HCl 0.4 MG CAP PO SCH (08:48)
[2019-11-30] MEDS: Enoxaparin Sodium 40 MG/0.4 ML SYRINGE SC SCH (08:48)
[2019-11-30] MEDS: Ferrous Sulfate 325 MG TAB PO SCH (08:48)
[2019-11-30] MEDS ORDERED: Mirtazapine 15 MG TAB PO SCH (09:00)
[2019-11-30] MEDS ORDERED: Non-Formulary Item 1 EACH (Liraglutide [Victoza 3-Pak] 1.2 MG) SC SCH (09:00)
[2019-11-30] MEDS ORDERED: hydrALAZINE 20 MG/ML VIAL SLOW IVP PRN (12:24)
[2019-11-30] MEDS: HumaLOG 300 UNITS/3 ML VIAL SC PRN (13:00)
[2019-11-30] MEDS: Atorvastatin Calcium 20 MG TAB PO SCH (21:45)
[2019-11-30] MEDS: Mirtazapine 15 MG TAB PO SCH (21:45)
[2019-11-30] MEDS ORDERED: Insulin Glargine 40 UNITS in Pre-Filled Syringe 1 EACH SC SCH (22:00)
[2019-11-30] MEDS: Insulin Glargine 55 UNITS in Pre-Filled Syringe 1 EACH SC SCH (23:22)
--- NOTE | 2019-12-01 06:04 | PDOC.FM ---
- Subjective Subjective: He's breathing better. He did not sleep well. He is eating well. - Objective MAR Reviewed: Yes Vital Signs & Weight: Vital Signs (12 hours) Temp Pulse Resp BP BP Pulse Ox 12/01/19 04:25 61 166/70 H 12/01/19 04:00 97.7 F 69 16 196/87 H 94 L 11/30/19 23:54 98.5 F 72 16 171/69 H 93 L 11/30/19 20:00 98.6 F 80 16 190/78 H 97 Weight Weight 113.398 kg I&O: 11/29/19 11/30/19 12/01/19 06:59 06:59 06:59 Intake Total 540 700 Output Total 300 Balance 540 400 Result Diagrams: 11/29/19 12:07 12/01/19 07:03 EKG Reviewed by me: Yes (SR with 1st degree AVB) Phys Exam - Physical Examination Constitutional: NAD HEENT: moist MMs, sclera anicteric, oral pharynx no lesions Neck: no nodes, supple Respiratory: no wheezing, no rales, no rhonchi, clear to auscultation bilateral Cardiovascular: RRR, no significant murmur, no rub Gastrointestinal: soft, non-tender, positive bowel sounds Musculoskeletal: no edema, pulses present Neurological: moves all 4 limbs Psychiatric: normal affect Skin: no rash, normal turgor Dx/Plan (1) Heart failure Code(s): I50.9 - HEART FAILURE, UNSPECIFIED Status: Acute (2) Elevated troponin Code(s): R79.89 - OTHER SPECIFIED ABNORMAL FINDINGS OF BLOOD CHEMISTRY Status : Acute (3) CAD (coronary artery disease) Code(s): I25.10 - ATHSCL HEART DISEASE OF [place] CORONARY ARTERY W/O ANG PCTRS Status: Chronic Qualifiers: Coronary Disease-Associated Artery/Lesion type: bypass graft Associated angina: without angina (4) DMII (diabetes mellitus, type 2) Status: Chronic 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 1. Suspected HF SOB with exertion, Orthopnea, 1+ pitting Edema * IV Lasix 20 mg * Strict I&Os, daily weights * HHLSo diet * ECHO ordered 2.Indeterminate trop Trop 0.033 > 0.023 > 0.04 > 0.032 (last admission 0.105) * H/o CAD with CABG in 2008 * Nonspecific CP: substernal CP that resolved without radiation and no change with nitro * Lipid Panel & TSH done last visit wnl * He is scheduled for a Stress test outpatient with his medical associate and was supposed to have an ECHO this week. 3. DMII Continue home medications: Lantus 55u QHS * Mild SS, ACHS accuchecks, hyperglycemic protocol 4. Depression Continue home medications: Mirtazapine and Venlaflaxine 5. CAD s/p CABG, PVD CABG 2008 * Continue home medications: Plavix, Atorvastatin, & Metoprolol * Started ASA 6. Chronic Pain Continue home medication: [place] 10 7. HTN BP: 140/72-196/87 * Will adjust medications once ECHO is back. Code Status: Full IVF: SL Diet: HHLSo with CC VTE: lovenox PCP: [facility] Dispo: Tele obs for suspected new onset heart failure. Will get ECHO results and based upon that we will consult Cardiology. LOS < 48hrs. Addendum - Attending - Attending Attestation Date/Time: 12/01/19 8378 I personally evaluated the patient and discussed the management with Dr. Salamanca. I agree with the History, Examination, Assessment and Plan documented above with any addition or exceptions noted below. Awaiting Echo report for further mgmt decisions. He feels well. Needs stress test likely but will await echo result.
[2019-12-01 07:28] LABS: Anion Gap 11 mmol/L (10-20); BUN (Urea Nitrogen) 11 mg/dL (8.4-25.7); Calc. Creatinine Clearance 99 mL/min (70-130); Carbon Dioxide 30 mmol/L (23-31); Chloride 103 mmol/L (98-107); Estimated GFR-MDRD 65; Glucose 119 mg/dL (80-115); Potassium 4.1 mmol/L (3.5-5.1); Sodium 140 mmol/L (136-145)
[2019-12-01] MEDS: Ferrous Sulfate 325 MG TAB PO SCH (10:33)
[2019-12-01] MEDS: Tamsulosin HCl 0.4 MG CAP PO SCH (10:33)
[2019-12-01] MEDS: Enoxaparin Sodium 40 MG/0.4 ML SYRINGE SC SCH (10:33)
[2019-12-01] MEDS: Venlafaxine HCl XR 150 MG CAP PO SCH (10:33)
[2019-12-01] MEDS: Aspirin Chewable 81 MG TAB PO SCH (10:33)
[2019-12-01] MEDS: Clopidogrel Bisulfate 75 MG TAB PO SCH (10:34)
[2019-12-01] MEDS: Furosemide 20 MG/2 ML VIAL SLOW IVP SCH (10:34)
--- NOTE | 2019-12-01 15:40 | EKG ---
Test Reason : Blood Pressure : / mmHG Vent. Rate : 057 BPM Atrial Rate : 057 BPM P-R Int : 000 ms QRS Dur : 146 ms QT Int : 490 ms P-R-T Axes : 044 -60 034 degrees QTc Int : 476 ms Sinus bradycardia with sinus arrhythmia with 1st degree A-V block Right bundle branch block Left anterior fascicular block Bifascicular block Abnormal ECG Confirmed by BHAVNA MARTIN DO ([id number]), supervising editor trailer AN HUNTLEY ([id number]) on 12/01/2019 3:39:44 PM Referred By: Confirmed By:BHAVNA MARTIN DO
[2019-12-01] MEDS: HumaLOG 300 UNITS/3 ML VIAL SC PRN (17:05)
[2019-12-01] MEDS ORDERED: Insulin Glargine 55 UNITS in Pre-Filled Syringe 1 EACH SC SCH (21:00)
[2019-12-01] MEDS: Atorvastatin Calcium 20 MG TAB PO SCH (21:48)
[2019-12-01] MEDS: Mirtazapine 15 MG TAB PO SCH (21:52)
--- NOTE | 2019-12-02 06:06 | PDOC.FM ---
- Subjective Subjective: He says he is not SOB and he does not have any swelling in his legs. - Objective MAR Reviewed: Yes Vital Signs & Weight: Vital Signs (12 hours) Temp Pulse Resp BP BP Pulse Ox 12/02/19 03:42 97.8 F 79 18 150/70 H 97 12/02/19 02:10 76 158/79 H 12/01/19 23:47 97.7 F 82 18 200/86 H 95 12/01/19 20:00 98.3 F 79 18 185/71 H 96 Weight Weight 110.495 kg I&O: 11/30/19 12/01/19 12/02/19 06:59 06:59 06:59 Intake Total 540 1060 Output Total 300 300 Balance 540 760 -300 Result Diagrams: 11/29/19 12:07 12/01/19 07:03 EKG Reviewed by me: Yes (long CA, SR with 1st deg AVB) Phys Exam - Physical Examination Constitutional: NAD HEENT: moist MMs, oral pharynx no lesions Neck: supple Respiratory: no wheezing, no rales, clear to auscultation bilateral Cardiovascular: RRR, no significant murmur Gastrointestinal: soft, non-tender, positive bowel sounds Musculoskeletal: no edema, pulses present Neurological: moves all 4 limbs Lymphatic: no nodes Psychiatric: normal affect Skin: no rash, normal turgor Dx/Plan (1) Heart failure Code(s): I50.9 - HEART FAILURE, UNSPECIFIED Status: Acute (2) Elevated troponin Code(s): R79.89 - OTHER SPECIFIED ABNORMAL FINDINGS OF BLOOD CHEMISTRY Status : Acute (3) CAD (coronary artery disease) Code(s): I25.10 - ATHSCL HEART DISEASE OF [place] CORONARY ARTERY W/O ANG PCTRS Status: Chronic Qualifiers: Coronary Disease-Associated Artery/Lesion type: bypass graft Associated angina: without angina (4) DMII (diabetes mellitus, type 2) Status: Chronic Qualifiers: Diabetes mellitus [facility] insulin use: with [facility] use Diabetes mellitus complication status: with kidney complications Diabetes mellitus complication detail: with chronic kidney disease Chronic kidney disease stage : stage 3 (moderate) Qualified Code(s): E11.22 - Type 2 diabetes mellitus with diabetic chronic kidney disease; N18.3 - Chronic kidney disease, stage 3 ( moderate); Z79.4 - long-term (current) use of insulin (5) PVD (peripheral vascular disease) Code(s): I73.9 - PERIPHERAL VASCULAR DISEASE, UNSPECIFIED Status: Chronic - Plan Plan: 69yo CM with pmh of DMII, CAD s/p CABG 2008 presents for shortness of breath. 1. 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 3. DMII Continue home medications: Lantus 55u QHS * Mild SS, ACHS accuchecks, hyperglycemic protocol 4. Depression Continue home medications: Mirtazapine and Venlaflaxine 5. CAD s/p CABG, PVD CABG 2008 * Continue home medications: Plavix, Atorvastatin, & Metoprolol * Started ASA 6. Chronic Pain Continue home medication: [place] 10 7. HTN BP: 140/72-196/87 * Will adjust medications once ECHO is back. Code Status: Full IVF: SL Diet: HHLSo with CC VTE: lovenox PCP: [facility] Dispo: Tele obs for suspected new onset heart failure. Will get stress today. LOS < 48hrs. Addendum - Attending - Attending Attestation Date/Time: 12/02/19 1140 I personally evaluated the patient and discussed the management with Dr. Salamanca. I agree with the History, Examination, Assessment and Plan documented above with any addition or exceptions noted below. Patient stable. Echo shows diastolic dysfxn. Stress today and further mgmt pending that result. Needs improved BP control.
[2019-12-02] MEDS: Ferrous Sulfate 325 MG TAB PO SCH (09:01)
[2019-12-02] MEDS: Aspirin Chewable 81 MG TAB PO SCH (09:01)
[2019-12-02] MEDS: Enoxaparin Sodium 40 MG/0.4 ML SYRINGE SC SCH (09:01)
[2019-12-02] MEDS: Venlafaxine HCl XR 150 MG CAP PO SCH (09:01)
[2019-12-02] MEDS: Tamsulosin HCl 0.4 MG CAP PO SCH (09:01)
[2019-12-02] MEDS: Clopidogrel Bisulfate 75 MG TAB PO SCH (09:01)
[2019-12-02] MEDS: HumaLOG 300 UNITS/3 ML VIAL SC PRN (12:35)
[2019-12-02] MEDS: Furosemide 20 MG/2 ML VIAL SLOW IVP SCH (12:42)
[2019-12-02 12:44] VITALS: BP 192/73; TEMP 97.7
--- NOTE | 2019-12-02 12:52 | NM ---
Radionucleotide stress and rest myocardial perfusion scan with CT attenuation correction and SPECT im aging Left ventricular wall motion evaluation and ejection fraction HISTORY: Chest pain. Elevated troponins. FINDINGS: Adenosine protocol. Heterogeneous uptake of radiotracer throughout the left ventricular corinna cardium. No focal perfusion defect or reversibility. QGS analysis of gated SPECT images shows dyskinesis of the septum and anterior wall. Likely related t o prior CABG. Left ventricular ejection fraction calculated at 61%. IMPRESSION: No evidence of ischemia. Preserved LVEF.
[2019-12-02] MEDS ORDERED: Carvedilol 3.125 MG TAB PO SCH (17:00)
--- NOTE | 2019-12-02 23:33 | DIS ---
DATE OF ADMISSION: 11/29/2019 DATE OF DISCHARGE: 12/02/2019 ADMITTING ATTENDING: Bart Fraire MD DISCHARGE ATTENDING: Castillo Fuentes MD RESIDENT: Manuel Salamanca MD CONSULTS: None. PROCEDURES: * Chest x-ray, mild cardiomegaly, no acute cardiopulmonary process. * Stress test 12/02/2019 shows no evidence of ischemia. Preserved left ventricular ejection fraction of 61%. * Echo on 12/02/2019 shows EF of 50% to 55%, mildly dilated left atrium, impaired relaxation compatible with diastolic dysfunction. PRIMARY DIAGNOSES: 1. Heart failure, reduced ejection fraction 2. Indeterminate Troponin 3. Diabetes type 2. SECONDARY DIAGNOSES: 1. Depression 2. Coronary artery disease status post coronary artery bypass grafting 3. Peripheral vascular disease 4. Chronic pain 5. Hypertension DISCHARGE MEDICATIONS: 1. Continue home acetaminophen 500 mg t.i.d. 2. Atorvastatin 20 mg at bedtime. 3. Blood sugar testing supplies. 4. Cholecalciferol 4000 units daily. 5. Clopidogrel 75 mg daily. 6. Vitamin B12 of 1000 mg daily. 7. Flexeril 10 mg t.i.d. 8. Iron 325 mg daily. 9. [place] 10 p.o. q.6 hours p.r.n. for pain. 10. Lantus 45 units subcu at bedtime. 11. Lidocaine 5% patch transdermal daily. 12. Victoza 1.2 mg subcu daily. 13. Melatonin 150 mg at bedtime. 14. Mirtazapine 7.5 mg at bedtime. 15. Tamsulosin 0.4 mg daily. 16. Venlafaxine 150 mg p.o. q.a.m. 17. Start lisinopril 5 mg daily. 18. Aspirin 81 mg daily. 19. Carvedilol 3.125 mg b.i.d. DISCONTINUED MEDICATIONS: Metoprolol 50 mg b.i.d. HISTORY OF PRESENT ILLNESS: The patient is a 69-year-old male with a history of diabetes type 2, coronary artery disease status post CABG in 2008, presents for shortness of breath with exertion for the last couple of days. He says he started feeling short of breath on Thursday and Thursday, but has somewhat improved today. He says he feels short of breath just walking a few feet. He tried to go to the [facility], but they were not taking any acute visits, so he went to the Urgent [facility]. He was seen at Urgent Care earlier today and had an EKG and chest x-ray there, they noted he had a small bilateral effusions and told him to come to the ER. In the ED, he had a chest x-ray that showed cardiomegaly. Troponin level was 0.033. BNP was 235.5 and hemoglobin was 12.5. He was given aspirin and nitroglycerin patch. HOSPITAL COURSE: 1. Heart failure, reduced ejection fraction, shortness of breath with exertion or orthopnea, 1+ pitting edema. * IV Lasix 20 mg given daily. * Strict Is and Os and daily weights. * Heart healthy, low-sodium diet. * Echo and stress as noted above. 2. Indeterminate troponin. Troponin of 0.033 to 0.023 to 0.04 to 0.032, lower than last admission, which was 0.105. 3. History of coronary artery disease CABG in 2008, nonspecific chest pain, substernal that resolved without radiation and no change with nitroglycerin. * Lipid panel and TSH done on 11/10 admission, that was within normal limits. * He is scheduled for echo and stress outpatient with the [facility] on 12/01. * Stress & ECHO as noted above. 4. Diabetes type 2. Continue home Lantus dosing of 45 units at bedtime. 5. Depression. Continue mirtazapine and venlafaxine. 6. Coronary artery disease status post CABG with peripheral vascular disease CABG 2008. * Continue home medications; Plavix, atorvastatin. Discontinue metoprolol. * Started aspirin. 7. Chronic pain. Continue home medication, Well[place] 10. 8. Hypertension. Carvedilol and lisinopril were started as noted above for blood pressure management and due to heart failure, reduced ejection fraction. DISCHARGE INSTRUCTIONS: 1. Location: Home. 2. Diet: Heart healthy low-sodium. 3. Activity: As tolerated. 4. [facility] BMP to evaluate creatinine. Job ID: [id number] [id number]
[2019-12-03] MEDS ORDERED: Lisinopril 5 MG TAB PO SCH (09:00)
== END 2019-12-02 14:31 | disposition home or self-care (01) ==
LOC: ERS 11:21 → 2SE 13:17
PROVIDERS: ADMIT Student in an Organized Health Care Education/Training Program; ATTEND Student in an Organized Health Care Education/Training Program
DX: I13.0 Hypertensive heart and chronic kidney disease with heart failure and stage 1 through stage 4 chronic kidney disease, or unspecified chronic kidney disease (principal); E11.22 Type 2 diabetes mellitus with diabetic chronic kidney disease; N18.3 Chronic kidney disease, stage 3 (moderate); I50.21 Acute systolic (congestive) heart failure; R79.89 Other specified abnormal findings of blood chemistry; F32.9 Major depressive disorder, single episode, unspecified; I25.10 Atherosclerotic heart disease of native coronary artery without angina pectoris; E11.51 Type 2 diabetes mellitus with diabetic peripheral angiopathy without gangrene; G89.29 Other chronic pain; G47.30 Sleep apnea, unspecified; Z79.02 Long term (current) use of antithrombotics/antiplatelets; Z79.4 Long term (current) use of insulin; Z79.899 Other long term (current) drug therapy; Z95.1 Presence of aortocoronary bypass graft
CPT/HCPCS: 36415; 36416; 71045; 78452; 80048; 80053; 82553; 83880; 84484; 85025; 93005; 93017; 93306; 96372; 96374; 96375; 96376; A9500; G0378; J0153; J0360; J1650; J1815; J1940

== ENCOUNTER 2023-03-08 00:12 | Emergency (ER) | payer OTHER ==
[2023-03-08] MEDS ORDERED: Fleet Saline Enema 133 ML BOT FS SCH (02:15)
== END 2023-03-08 03:02 | disposition home or self-care (01) ==
LOC: ERS 00:12
DX: K59.00 Constipation, unspecified (principal); E11.9 Type 2 diabetes mellitus without complications; Z79.899 Other long term (current) drug therapy; Z79.82 Long term (current) use of aspirin
CPT/HCPCS: 74018

== ENCOUNTER 2024-06-03 12:50 | Emergency (ER) | payer OTHER, SELFPAY ==
[2024-06-03 13:39] LABS: Hematocrit 39.3 % (42.0-52.0); Hemoglobin 12.5 g/dL (14.0-18.0); Mean Corpuscular HGB CONC 31.8 g/dL (32.0-36.0); Mean Corpuscular Hemoglobin 27.7 pg (27.0-31.0); Mean Corpuscular Volume 87.1 fL (78.0-98.0); Platelet Count 192 10x3/uL (130-400); RBC Distribution Width 14.6 % (11.5-14.5); Red Blood Cell (RBC) Count 4.51 mill/uL (4.70-6.10); White Blood Cell (WBC) Count 6.89 10x3/uL (4.8-10.8)
[2024-06-03 13:40] LABS: %Basophils 0.6 % (0.0-1.0); %Eosinophils 4.4 % (0.0-10.0); %Lymphocytes 21.6 % (21.0-51.0); %Monocytes 13.5 % (0.0-10.0); %Neutrophils 59.2 % (42.0-75.0)
[2024-06-03 13:41] LABS: #Basophils 0.04 10x3/uL (0.0-0.2); #Monocytes 0.93 10x3/uL (0.11-0.59); #Neutrophils 4.08 10x3/uL (1.40-6.50)
[2024-06-03 13:43] LABS: Mean Platelet Volume 11.3 fL (7.4-10.4)
[2024-06-03 13:55] LABS: ALT (SGPT) 14 U/L (8-55); AST (SGOT) 19 U/L (5-34); Albumin 3.2 g/dL (3.4-4.8); Alkaline Phosphatase 71 U/L (40-110); Anion Gap 12 mmol/L (10-20); BUN (Urea Nitrogen) 15 mg/dL (8.4-25.7); Bilirubin, Total 0.4 mg/dL (0.2-1.2); CRP,High Sensitivity (Inhouse) 3.77 mg/dL (< or = 0.5); Calc. Creatinine Clearance 0 mL/min (70-130); Calcium 8.5 mg/dL (7.8-10.44); Carbon Dioxide 27 mmol/L (23-31); Chloride 103 mmol/L (98-107); Estimated GFR 61; Globulin 3.4 g/dL (2.4-3.5); Glucose 162 mg/dL (83-110); Potassium 4.2 mmol/L (3.5-5.1); Protein, Total 6.6 g/dL (5.8-8.1); Sodium 138 mmol/L (136-145)
[2024-06-03] MEDS ORDERED: HYDROcodone/Acetaminophen 5/325 mg Tablet ONE (15:29)
== END 2024-06-03 15:05 | disposition home or self-care (01) ==
LOC: ERS 12:50
DX: L03.116 Cellulitis of left lower limb (principal); L03.115 Cellulitis of right lower limb; E11.9 Type 2 diabetes mellitus without complications; E78.00 Pure hypercholesterolemia, unspecified; Z79.899 Other long term (current) drug therapy
CPT/HCPCS: 36415; 80053; 83605; 85025; 86141; 93970

== ENCOUNTER 2024-06-06 23:59 | Inpatient (IN) | payer MEDICARE, OTHER, SELFPAY ==
[2024-06-07] MEDS ORDERED: Morphine 4 MG/ML VIAL ONE ×2 (00:36→03:15)
[2024-06-07] MEDS ORDERED: Ondansetron PF 4 MG/2 ML Vial ONE (00:36)
[2024-06-07 00:46] LABS: Actual Bicarbonate (HCO3v) 25.7 mEq/L (22-28); Calcium, Ionized (venous) 1.11 mmol/L (1.16-1.32); Chloride (VBG) 101 mmol/L (98-106); Hematocrit-VBG 37 % (42.0-52.0); Hemoglobin (Hb) 12.5 g/dL (12.6-17.4); Potassium (VBG) 4.59 mmol/L (3.70-5.30); Sodium 137 mmol/L (133-146)
[2024-06-07 00:51] LABS: #Basophils Less than 0.03 10x3/uL (0.0-0.2); #Eosinophils Less than 0.03 10x3/uL (0.0-0.7); %Basophils 0.1 % (0.0-1.0); %Lymphocytes 12.4 % (21.0-51.0); %Monocytes 8.9 % (0.0-10.0); %Neutrophils 78.1 % (42.0-75.0); Hematocrit 36.5 % (42.0-52.0); Hemoglobin 11.6 g/dL (14.0-18.0); Mean Corpuscular HGB CONC 31.8 g/dL (32.0-36.0); Mean Corpuscular Hemoglobin 27.1 pg (27.0-31.0); Mean Corpuscular Volume 85.3 fL (78.0-98.0); Mean Platelet Volume 11.3 fL (7.4-10.4); Platelet Count 215 10x3/uL (130-400); RBC Distribution Width 14.8 % (11.5-14.5); Red Blood Cell (RBC) Count 4.28 mill/uL (4.70-6.10)
[2024-06-07 01:09] LABS: ALT (SGPT) 22 U/L (8-55); AST (SGOT) 23 U/L (5-34); Albumin 3.3 g/dL (3.4-4.8); Alkaline Phosphatase 73 U/L (40-110); Anion Gap 16 mmol/L (10-20); BUN (Urea Nitrogen) 21 mg/dL (8.4-25.7); Bilirubin, Total 0.3 mg/dL (0.2-1.2); Calc. Creatinine Clearance 0 mL/min (70-130); Calcium 8.7 mg/dL (7.8-10.44); Carbon Dioxide 21 mmol/L (23-31); Chloride 101 mmol/L (98-107); Estimated GFR 48; Globulin 3.2 g/dL (2.4-3.5); Glucose 274 mg/dL (83-110); Potassium 4.5 mmol/L (3.5-5.1); Protein, Total 6.5 g/dL (5.8-8.1); Sodium 133 mmol/L (136-145)
[2024-06-07] MEDS ORDERED: Sodium Chloride 0.9% 100 ML ONE (02:03)
[2024-06-07] MEDS ORDERED: Cefepime 2 GM VIAL ONE (02:03)
[2024-06-07 02:45] LABS: Bacteria/HPF None Seen HPF (None Seen); Bilirubin Negative (Negative); Blood, Urine Negative (Negative); CAUTI Indications for Culture Immunosuppressed; Clarity Clear (Clear); Glucose, Urine (Dipstick) Greater than 1000 mg/dL (Negative); Ketone, Urine Negative (Negative); Leukocyte Negative Leu/uL (Negative); Nitrite Negative (Negative); Protein, Urine (Dipstick) Negative (Neg-Trace); RBC/HPF 0-3 HPF (0-3); Specific Gravity, Urine 1.041 (1.002-1.036); Squamous Epithelial None Seen HPF (0-3); Urobilinogen Normal mg/dL (Less than 2); WBC/HPF None Seen HPF (0-3); pH, Urine 6.5 (5.0-9.0)
[2024-06-07 03:07] LABS: Urine Culture Reflex Yes Yes
[2024-06-07] MEDS ORDERED: Acetaminophen 500 MG TAB ONE (03:14)
[2024-06-07] MEDS ORDERED: Ketorolac Tromethamine 30 MG (1 mL) VIAL ONE (03:14)
[2024-06-07] MEDS ORDERED: Ondansetron PF 4 MG/2 ML Vial IVP PRN (04:31)
[2024-06-07] MEDS ORDERED: Dextrose 50% Abboject 50 ML SYRINGE SLOW IVP PRN (04:34)
[2024-06-07] MEDS ORDERED: Dextrose 5% in Water 1,000 ML IV PRN (04:34)
[2024-06-07] MEDS ORDERED: Glucagon 1 MG/ML KIT IM PRN (04:34)
[2024-06-07 04:38] LABS: Lactic Acid 1.67 mmol/L (0.5-2.2)
[2024-06-07 05:05] VITALS: BMI 32.7
[2024-06-07] MEDS: Vancomycin (BATCH) 2.5 GM in Premix 1 BAG IVPB SCH (05:06)
[2024-06-07] MEDS: Gabapentin 300 MG CAP PO SCH (09:32)
[2024-06-07] MEDS: Heparin 5,000 UNITS/ML VIAL SC SCH (09:33)
[2024-06-07] MEDS: Acetaminophen 325 MG TAB PO PRN (09:47)
[2024-06-07] MEDS: Morphine 2 MG/ML VIAL SLOW IVP PRN (12:09)
[2024-06-07] MEDS: Insulin Lispro 100 UNIT/ML 10 ML VIAL SC PRN (13:33)
[2024-06-07] MEDS ORDERED: fentaNYL 12 mcg Patch TD SCH (14:00)
[2024-06-07] MEDS: Morphine 4 MG/ML VIAL SLOW IVP SCH (14:08)
[2024-06-07] MEDS ORDERED: Iopamidol-370 76% 500 ML MDV (1 ML CHARGE) ONE (15:28)
[2024-06-07] MEDS: Vancomycin HCl 750 MG in Sodium Chloride 0.9% 250 ML 250 ML IVPB SCH (17:01)
[2024-06-07] MEDS ORDERED: Cyclobenzaprine 10 MG TAB PO PRN (18:25)
[2024-06-07] MEDS: Morphine 2 MG/ML VIAL SLOW IVP SCH (19:06)
[2024-06-07] MEDS: Lidocaine 4% Patch TD SCH (20:07)
[2024-06-07] MEDS: Pregabalin 50 MG CAP PO SCH (20:07)
[2024-06-07] MEDS: Melatonin 3 MG TAB PO SCH (20:08)
[2024-06-07] MEDS: Atorvastatin Calcium 20 MG TAB PO SCH (20:08)
[2024-06-08 05:52] LABS: #Basophils 0.06 10x3/uL (0.0-0.2); %Basophils 0.5 % (0.0-1.0); %Eosinophils 4.9 % (0.0-10.0); %Monocytes 10.6 % (0.0-10.0); %Neutrophils 64.6 % (42.0-75.0); Hematocrit 37.4 % (42.0-52.0); Hemoglobin 11.8 g/dL (14.0-18.0); Mean Corpuscular HGB CONC 31.6 g/dL (32.0-36.0); Mean Corpuscular Hemoglobin 27.5 pg (27.0-31.0); Mean Corpuscular Volume 87.2 fL (78.0-98.0); Mean Platelet Volume 11.3 fL (7.4-10.4); Platelet Count 192 10x3/uL (130-400); RBC Distribution Width 14.7 % (11.5-14.5); Red Blood Cell (RBC) Count 4.29 mill/uL (4.70-6.10)
[2024-06-08 06:07] LABS: Anion Gap 14 mmol/L (10-20); BUN (Urea Nitrogen) 24 mg/dL (8.4-25.7); Calc. Creatinine Clearance 68 mL/min (70-130); Calcium 8.5 mg/dL (7.8-10.44); Carbon Dioxide 26 mmol/L (23-31); Chloride 101 mmol/L (98-107); Estimated GFR 52; Glucose 112 mg/dL (83-110); Potassium 4.8 mmol/L (3.5-5.1); Sodium 136 mmol/L (136-145)
[2024-06-08 06:16] LABS: Vancomycin, Random 39.4 ug/mL (See Comment)
[2024-06-08] MEDS: Venlafaxine HCl XR 75 MG CAP PO SCH (08:42)
[2024-06-08] MEDS: Aspirin Chewable 81 MG TAB PO SCH (08:42)
[2024-06-08] MEDS: Carvedilol 3.125 MG TAB PO SCH (08:42)
[2024-06-08] MEDS: Folic Acid 1 MG TAB PO SCH (08:43)
[2024-06-08] MEDS: Ferrous Gluconate 324 MG TAB PO SCH (08:43)
[2024-06-08] MEDS: Tamsulosin HCl 0.4 MG CAP PO SCH (08:43)
[2024-06-08] MEDS: LIDOCAINE Patch Removal TOP SCH (08:53)
[2024-06-08] MEDS ORDERED: methylPREDNISolone Sod Succ/PF 40 MG in Sodium Chloride 0.9% 250 ML 250 ML IVPB SCH (09:45)
[2024-06-08] MEDS: methylPREDNISolone Sod Succ 40 MG VIAL IVP SCH (11:09)
[2024-06-08] MEDS: Vancomycin 1 GM in Premix 1 BAG IVPB SCH (16:58)
[2024-06-08] MEDS: Insulin Lispro 100 UNIT/ML 10 ML VIAL SC PRN (21:00)
[2024-06-08] MEDS: Hydrocortisone 1% Cream 30 GM TUBE TOP SCH (21:10)
[2024-06-09 05:01] LABS: #Basophils Less than 0.03 10x3/uL (0.0-0.2); #Eosinophils Less than 0.03 10x3/uL (0.0-0.7); %Lymphocytes 8.1 % (21.0-51.0); %Monocytes 2.1 % (0.0-10.0); %Neutrophils 89.2 % (42.0-75.0); Hematocrit 41.3 % (42.0-52.0); Hemoglobin 13.2 g/dL (14.0-18.0); Mean Corpuscular Hemoglobin 26.9 pg (27.0-31.0); Mean Corpuscular Volume 84.1 fL (78.0-98.0); Mean Platelet Volume 10.8 fL (7.4-10.4); Platelet Count 223 10x3/uL (130-400); RBC Distribution Width 14.4 % (11.5-14.5); Red Blood Cell (RBC) Count 4.91 mill/uL (4.70-6.10)
[2024-06-09 05:42] LABS: Anion Gap 18 mmol/L (10-20); BUN (Urea Nitrogen) 25 mg/dL (8.4-25.7); Calc. Creatinine Clearance 86 mL/min (70-130); Calcium 9.5 mg/dL (7.8-10.44); Carbon Dioxide 25 mmol/L (23-31); Chloride 101 mmol/L (98-107); Estimated GFR 68; Glucose 209 mg/dL (83-110); Potassium 4.8 mmol/L (3.5-5.1); Sodium 139 mmol/L (136-145)
[2024-06-09 07:47] LABS: HBsAg Index 0.26 S/CO (0-0.99); Hep A IgM AB NONREACTIVE (NonReactive); Hep A IgM S/CO 0.18 S/CO (0-0.79); Hep B Core IgM Index 0.06 S/CO (0-0.79); Hep B Surf Ag NONREACTIVE S/CO (NonReactive); Hep C IgG Ab NONREACTIVE S/CO (NonReactive); Hep C Index 0.12 S/CO (0-0.79); Hepatitis B Core IgM Abs NONREACTIVE S/CO (NonReactive)
[2024-06-09 12:15] LABS: ANA Symphony (Qualitative) Negative (Negative); ANA Symphony (Quantitative) 0.1 Ratio (< 0.7 Negative); dsDNA IgG Antibody 0.6 IU/mL (<10 Negative)
[2024-06-09] MEDS ORDERED: Bupivacaine PF 0.5% 30 ML VIAL ONE (15:02)
[2024-06-09] MEDS ORDERED: EPINEPHrine 1 MG/ML VIAL ONE (15:02)
[2024-06-09] MEDS ORDERED: fentaNYL PF 100 MCG/2 ML SYRINGE ONE (15:03)
[2024-06-09] MEDS ORDERED: PROPOFOL 20 ML ONE (15:03)
[2024-06-09] MEDS ORDERED: Lidocaine 1% PF 5 ML VIAL ONE (15:03)
[2024-06-09] MEDS ORDERED: Glycopyrrolate 0.2 MG/ML 5 ML SYRINGE ONE (15:35)
[2024-06-09] MEDS ORDERED: Ondansetron PF 4 MG/2 ML Vial ONE (15:35)
[2024-06-09] MEDS ORDERED: PHENYLEPHRINE-NS 100 MCG/ML 10 ML SYRINGE ONE (15:35)
[2024-06-09] MEDS ORDERED: Lidocaine 2% 6 ML (Jelly) SYR ONE (15:36)
[2024-06-09] MEDS ORDERED: CEFAZOLIN 2 GM VIAL ONE (15:48)
[2024-06-09] MEDS ORDERED: Dexmedetomidine 200 MCG/2 ML VIAL ONE (16:09)
[2024-06-09] MEDS: RIBOFLAVIN 100 MG PO SCH (19:44)
[2024-06-10 05:10] LABS: Complement-C3 136 mg/dL (83-185); Complement-C4 11 mg/dL (15-53)
[2024-06-10] MEDS: HYDROcodone/Acetaminophen 5/325 mg Tablet PO PRN (09:50)
[2024-06-11 05:07] LABS: #Basophils Less than 0.03 10x3/uL (0.0-0.2); #Eosinophils Less than 0.03 10x3/uL (0.0-0.7); %Basophils 0.1 % (0.0-1.0); %Lymphocytes 7.5 % (21.0-51.0); %Monocytes 4.2 % (0.0-10.0); %Neutrophils 87.6 % (42.0-75.0); Hematocrit 38.2 % (42.0-52.0); Hemoglobin 12.4 g/dL (14.0-18.0); Mean Corpuscular HGB CONC 32.5 g/dL (32.0-36.0); Mean Corpuscular Hemoglobin 27.4 pg (27.0-31.0); Mean Corpuscular Volume 84.5 fL (78.0-98.0); Mean Platelet Volume 11.1 fL (7.4-10.4); Platelet Count 239 10x3/uL (130-400); RBC Distribution Width 14.2 % (11.5-14.5); Red Blood Cell (RBC) Count 4.52 mill/uL (4.70-6.10)
[2024-06-11 05:20] LABS: Anion Gap 13 mmol/L (10-20); BUN (Urea Nitrogen) 26 mg/dL (8.4-25.7); Calc. Creatinine Clearance 101 mL/min (70-130); Carbon Dioxide 26 mmol/L (23-31); Chloride 100 mmol/L (98-107); Estimated GFR 83; Glucose 216 mg/dL (83-110); Potassium 4.8 mmol/L (3.5-5.1); Sodium 134 mmol/L (136-145)
[2024-06-11] MEDS: methylPREDNISolone Sod Succ 40 MG VIAL IVP SCH (17:48)
[2024-06-11] MEDS: hydrALAZINE 20 MG/ML VIAL SLOW IVP SCH (19:00)
[2024-06-11] MEDS: Lisinopril 10 MG TAB PO SCH (20:44)
[2024-06-12] MEDS: Lisinopril 20 MG TAB PO SCH (08:46)
[2024-06-12 10:20] LABS: #Basophils Less than 0.03 10x3/uL (0.0-0.2); #Eosinophils Less than 0.03 10x3/uL (0.0-0.7); %Basophils 0.1 % (0.0-1.0); %Lymphocytes 8.8 % (21.0-51.0); %Monocytes 8.2 % (0.0-10.0); %Neutrophils 82.1 % (42.0-75.0); Hemoglobin 12.5 g/dL (14.0-18.0); Mean Corpuscular HGB CONC 32.1 g/dL (32.0-36.0); Mean Corpuscular Hemoglobin 27.2 pg (27.0-31.0); Mean Corpuscular Volume 84.8 fL (78.0-98.0); Mean Platelet Volume 10.8 fL (7.4-10.4); Platelet Count 238 10x3/uL (130-400); RBC Distribution Width 14.4 % (11.5-14.5)
[2024-06-12] MEDS: hydrALAZINE 25 MG TAB PO SCH ×2 (10:20→20:09)
[2024-06-12 10:34] LABS: Anion Gap 13 mmol/L (10-20); BUN (Urea Nitrogen) 25 mg/dL (8.4-25.7); Calc. Creatinine Clearance 94 mL/min (70-130); Calcium 8.4 mg/dL (7.8-10.44); Carbon Dioxide 26 mmol/L (23-31); Chloride 100 mmol/L (98-107); Estimated GFR 76; Glucose 263 mg/dL (83-110); Potassium 4.4 mmol/L (3.5-5.1); Sodium 135 mmol/L (136-145)
[2024-06-12] MEDS: methylPREDNISolone Sod Succ 40 MG VIAL IVP SCH (20:07)
[2024-06-12] MEDS ORDERED: hydrALAZINE 25 MG TAB PO SCH (21:00)
[2024-06-13 04:59] LABS: #Basophils Less than 0.03 10x3/uL (0.0-0.2); #Eosinophils Less than 0.03 10x3/uL (0.0-0.7); %Basophils 0.1 % (0.0-1.0); %Lymphocytes 13.1 % (21.0-51.0); %Monocytes 8.5 % (0.0-10.0); %Neutrophils 76.8 % (42.0-75.0); Hematocrit 39.4 % (42.0-52.0); Mean Corpuscular Hemoglobin 27.6 pg (27.0-31.0); Mean Corpuscular Volume 83.7 fL (78.0-98.0); Platelet Count 237 10x3/uL (130-400); RBC Distribution Width 14.2 % (11.5-14.5); Red Blood Cell (RBC) Count 4.71 mill/uL (4.70-6.10)
[2024-06-13 05:18] LABS: Anion Gap 13 mmol/L (10-20); BUN (Urea Nitrogen) 25 mg/dL (8.4-25.7); Calc. Creatinine Clearance 110 mL/min (70-130); Calcium 8.6 mg/dL (7.8-10.44); Carbon Dioxide 23 mmol/L (23-31); Chloride 103 mmol/L (98-107); Estimated GFR 91; Glucose 204 mg/dL (83-110); Potassium 4.4 mmol/L (3.5-5.1); Sodium 135 mmol/L (136-145)
[2024-06-13] MEDS: Lisinopril 20 MG TAB PO SCH (10:07)
[2024-06-13] MEDS: hydrALAZINE 25 MG TAB PO SCH (10:09)
[2024-06-14] MEDS: hydrALAZINE 20 MG/ML VIAL SLOW IVP SCH (03:54)
[2024-06-14 04:34] LABS: #Basophils Less than 0.03 10x3/uL (0.0-0.2); #Eosinophils Less than 0.03 10x3/uL (0.0-0.7); %Basophils 0.2 % (0.0-1.0); %Eosinophils 0.1 % (0.0-10.0); %Lymphocytes 11.1 % (21.0-51.0); %Monocytes 6.5 % (0.0-10.0); %Neutrophils 80.3 % (42.0-75.0); Hematocrit 41.3 % (42.0-52.0); Hemoglobin 13.4 g/dL (14.0-18.0); Mean Corpuscular HGB CONC 32.4 g/dL (32.0-36.0); Mean Corpuscular Hemoglobin 27.3 pg (27.0-31.0); Mean Corpuscular Volume 84.3 fL (78.0-98.0); Mean Platelet Volume 10.9 fL (7.4-10.4); Platelet Count 259 10x3/uL (130-400); RBC Distribution Width 14.4 % (11.5-14.5)
[2024-06-14 04:57] LABS: Anion Gap 12 mmol/L (10-20); BUN (Urea Nitrogen) 24 mg/dL (8.4-25.7); Calc. Creatinine Clearance 107 mL/min (70-130); Calcium 8.6 mg/dL (7.8-10.44); Carbon Dioxide 28 mmol/L (23-31); Chloride 99 mmol/L (98-107); Estimated GFR 90; Glucose 237 mg/dL (83-110); Potassium 4.5 mmol/L (3.5-5.1); Sodium 134 mmol/L (136-145)
[2024-06-14] MEDS: Amlodipine 10 MG TAB PO SCH (09:20)
[2024-06-14] MEDS: methylPREDNISolone Sod Succ 40 MG VIAL IVP SCH (09:22)
[2024-06-14] MEDS: Gabapentin 300 MG CAP PO SCH (16:35)
[2024-06-15] MEDS: hydrALAZINE 20 MG/ML VIAL SLOW IVP SCH (03:58)
[2024-06-15 05:10] LABS: #Basophils 0.05 10x3/uL (0.0-0.2); %Basophils 0.4 % (0.0-1.0); %Eosinophils 2.7 % (0.0-10.0); %Lymphocytes 25.7 % (21.0-51.0); %Monocytes 10.4 % (0.0-10.0); Hematocrit 44.2 % (42.0-52.0); Hemoglobin 14.1 g/dL (14.0-18.0); Mean Corpuscular HGB CONC 31.9 g/dL (32.0-36.0); Mean Corpuscular Hemoglobin 26.9 pg (27.0-31.0); Mean Corpuscular Volume 84.2 fL (78.0-98.0); Mean Platelet Volume 10.7 fL (7.4-10.4); Platelet Count 266 10x3/uL (130-400); RBC Distribution Width 14.5 % (11.5-14.5); Red Blood Cell (RBC) Count 5.25 mill/uL (4.70-6.10)
[2024-06-15 05:27] LABS: Anion Gap 13 mmol/L (10-20); BUN (Urea Nitrogen) 20 mg/dL (8.4-25.7); Calc. Creatinine Clearance 106 mL/min (70-130); Carbon Dioxide 25 mmol/L (23-31); Chloride 101 mmol/L (98-107); Estimated GFR 88; Glucose 147 mg/dL (83-110); Potassium 4.4 mmol/L (3.5-5.1); Sodium 135 mmol/L (136-145)
[2024-06-15] MEDS: predniSONE 20 MG TAB PO SCH (09:08)
[2024-06-15 18:08] VITALS: BP 122/54; TEMP 97.8
[2024-06-16] MEDS ORDERED: predniSONE 20 MG TAB PO SCH (08:00)
== END 2024-06-15 17:40 | disposition home or self-care (01) | DRG 596 ==
LOC: ERS 23:59 → MSONC 06-07 03:36 → OBSVTOIN 06-09 09:09
PROVIDERS: ADMIT Internal Medicine; ATTEND Student in an Organized Health Care Education/Training Program
PROC: 0JBM0ZX Excision of Left Upper Leg Subcutaneous Tissue and Fascia, Open Approach, Diagnostic (ICD-10-PCS; principal; 2024-06-09)
DX: L40.0 Psoriasis vulgaris (principal); I13.0 Hypertensive heart and chronic kidney disease with heart failure and stage 1 through stage 4 chronic kidney disease, or unspecified chronic kidney disease; I50.32 Chronic diastolic (congestive) heart failure; N17.9 Acute kidney failure, unspecified; E11.22 Type 2 diabetes mellitus with diabetic chronic kidney disease; N18.30 Chronic kidney disease, stage 3 unspecified; I25.10 Atherosclerotic heart disease of native coronary artery without angina pectoris; Z95.1 Presence of aortocoronary bypass graft; G47.33 Obstructive sleep apnea (adult) (pediatric); D64.9 Anemia, unspecified; N40.0 Benign prostatic hyperplasia without lower urinary tract symptoms; E78.5 Hyperlipidemia, unspecified; F32.A Depression, unspecified; Z98.890 Other specified postprocedural states; Z79.82 Long term (current) use of aspirin; Z79.01 Long term (current) use of anticoagulants; Z79.4 Long term (current) use of insulin; Z79.899 Other long term (current) drug therapy
CPT/HCPCS: 36415; 36416; 71045; 80048; 80053; 80074; 80202; 81001; 82595; 82805; 83605; 85025; 86038; 86141; 86160; 86225; 87040; 87086; 88305; 94760; 96372; 96374; 96375; 96376; 97139; G0378; J0171; J0360; J0665; J0692; J1644; J1815; J1885; J2272; J2405; J2704; J2919; J3370; J7050; J7512

== ENCOUNTER 2024-06-27 13:57 | Emergency (ER) | payer MEDICARE, OTHER | END 2024-06-27 14:45 | disposition home or self-care (01) | LOC: ERS 13:57 | DX: T81.31XA Disruption of external operation (surgical) wound, not elsewhere classified, initial encounter (principal); Z48.01 Encounter for change or removal of surgical wound dressing; E11.9 Type 2 diabetes mellitus without complications | CPT/HCPCS: 99283 ==

== ENCOUNTER 2024-07-12 16:09 | Emergency (ER) | payer MEDICARE, OTHER ==
[2024-07-12 16:44] LABS: #Basophils 0.03 10x3/uL (0.0-0.2); %Basophils 0.5 % (0.0-1.0); %Eosinophils 2.7 % (0.0-10.0); %Lymphocytes 17.4 % (21.0-51.0); %Monocytes 10.2 % (0.0-10.0); %Neutrophils 68.7 % (42.0-75.0); Hemoglobin 11.5 g/dL (14.0-18.0); Mean Corpuscular HGB CONC 32.9 g/dL (32.0-36.0); Mean Corpuscular Hemoglobin 27.6 pg (27.0-31.0); Mean Corpuscular Volume 84.1 fL (78.0-98.0); Mean Platelet Volume 10.3 fL (7.4-10.4); Platelet Count 192 10x3/uL (130-400); Red Blood Cell (RBC) Count 4.16 mill/uL (4.70-6.10)
[2024-07-12 17:10] LABS: Troponin I 0.037 ng/mL (< 0.028)
[2024-07-12 17:26] LABS: ALT (SGPT) 21 U/L (8-55); AST (SGOT) 18 U/L (5-34); Albumin 3.2 g/dL (3.4-4.8); Alkaline Phosphatase 79 U/L (40-110); Anion Gap 13 mmol/L (10-20); BUN (Urea Nitrogen) 7 mg/dL (8.4-25.7); Bilirubin, Total 0.7 mg/dL (0.2-1.2); Calc. Creatinine Clearance 0 mL/min (70-130); Calcium 8.7 mg/dL (7.8-10.44); Carbon Dioxide 23 mmol/L (23-31); Chloride 107 mmol/L (98-107); Estimated GFR 77; Globulin 3.5 g/dL (2.4-3.5); Glucose 147 mg/dL (83-110); Potassium 3.4 mmol/L (3.5-5.1); Protein, Total 6.7 g/dL (5.8-8.1); Sodium 140 mmol/L (136-145)
[2024-07-12 20:58] LABS: Troponin I 0.032 ng/mL (< 0.028)
[2024-07-12] MEDS ORDERED: methylPREDNISolone Sod Succ 40 MG VIAL ONE (21:29)
== END 2024-07-12 21:46 | disposition home or self-care (01) ==
LOC: ERS 16:09
DX: L40.9 Psoriasis, unspecified (principal); I25.2 Old myocardial infarction; E11.9 Type 2 diabetes mellitus without complications; E78.00 Pure hypercholesterolemia, unspecified; Z79.82 Long term (current) use of aspirin; Z79.84 Long term (current) use of oral hypoglycemic drugs
CPT/HCPCS: 36415; 71045; 80053; 83880; 84484; 85025; 93005; 96374; J2919

== ENCOUNTER 2025-02-02 14:15 | Outpatient (CLI) | payer OTHER ==
[2025-02-02] MEDS ORDERED: 0.9 % Sodium Chloride 20 ML, Lidocaine 1% PF 5 ML, Iopamidol 5 ML, EPINEPHrine 0.1 MG FS SCH (14:30)
[2025-02-02] MEDS ORDERED: Sodium Bicarbonate 2.5 MEQ/5 ML SDV ONE (14:35)
== END 2025-02-02 14:16 | disposition home or self-care (01) ==
LOC: RAD 14:15
PROVIDERS: ATTEND Orthopaedic Surgery
PROC: BP09YZZ Plain Radiography of Left Shoulder using Other Contrast (ICD-10-PCS; principal; 2025-02-02)
DX: M75.122 Complete rotator cuff tear or rupture of left shoulder, not specified as traumatic (principal)
CPT/HCPCS: 23350; 77002; J0166; Q9967

== ENCOUNTER 2025-02-12 16:54 | Emergency (ER) | payer OTHER ==
[2025-02-12 17:35] LABS: #Basophils 0.04 10x3/uL (0.0-0.2); #Eosinophils 0.16 10x3/uL (0.0-0.7); #Monocytes 0.68 10x3/uL (0.11-0.59); #Neutrophils 5.10 10x3/uL (1.40-6.50); %Basophils 0.6 % (0.0-1.0); %Eosinophils 2.2 % (0.0-10.0); %Lymphocytes 16.8 % (21.0-51.0); %Monocytes 9.4 % (0.0-10.0); %Neutrophils 70.9 % (42.0-75.0); Hematocrit 36.0 % (42.0-52.0); Hemoglobin 11.4 g/dL (14.0-18.0); Mean Corpuscular Hemoglobin 26.5 pg (27.0-31.0); Mean Corpuscular Volume 83.5 fL (78.0-98.0); Platelet Count 210 10x3/uL (130-400); Red Blood Cell (RBC) Count 4.31 mill/uL (4.70-6.10); White Blood Cell (WBC) Count 7.20 10x3/uL (4.8-10.8)
[2025-02-12 18:10] LABS: ALT (SGPT) 29 U/L (Less than 45); AST (SGOT) 28 U/L (11-34); Albumin 3.4 g/dL (3.1-4.5); Alkaline Phosphatase 84 U/L (40-110); Anion Gap 15 mmol/L (10-20); BUN (Urea Nitrogen) 8 mg/dL (8.4-25.7); Bilirubin, Total 0.7 mg/dL (0.3-1.2); Calc. Creatinine Clearance 0 mL/min (70-130); Calcium 8.2 mg/dL (7.8-10.44); Carbon Dioxide 24 mmol/L (23-31); Chloride 106 mmol/L (98-107); Globulin 2.9 g/dL (2.4-3.5); Glucose 105 mg/dL (83-110); Potassium 4.0 mmol/L (3.5-5.1); Sodium 141 mmol/L (136-145)
[2025-02-12 18:13] LABS: Troponin I 0.028 ng/mL (< 0.028)
[2025-02-12] MEDS ORDERED: Bacitracin 1 PK ONE (22:14)
== END 2025-02-12 22:29 | disposition home or self-care (01) ==
LOC: ERS 16:54
DX: R55 Syncope and collapse (principal); I25.2 Old myocardial infarction; E78.00 Pure hypercholesterolemia, unspecified; E11.9 Type 2 diabetes mellitus without complications; Z79.01 Long term (current) use of anticoagulants; Z79.4 Long term (current) use of insulin; Z79.82 Long term (current) use of aspirin; Z79.899 Other long term (current) drug therapy
CPT/HCPCS: 70450; 71045; 83880; 84484; 85025; 93005; 94760

== ENCOUNTER 2025-04-15 20:01 | Inpatient (IN) | payer OTHER ==
[~2025-04-15 20:01] MED LIST changes: -Iopamidol 370 76% 100 ML VIAL ONE; +Iopamidol-370 76% 500 ML MDV (1 ML CHARGE) ONE
[2025-04-15 20:38] LABS: #Basophils 0.04 10x3/uL (0.0-0.2); #Eosinophils 0.11 10x3/uL (0.0-0.7); #Monocytes 0.70 10x3/uL (0.11-0.59); #Neutrophils 3.90 10x3/uL (1.40-6.50); %Basophils 0.6 % (0.0-1.0); %Eosinophils 1.8 % (0.0-10.0); %Lymphocytes 24.2 % (21.0-51.0); %Monocytes 11.1 % (0.0-10.0); %Neutrophils 62.1 % (42.0-75.0); Hematocrit 38.5 % (42.0-52.0); Hemoglobin 12.3 g/dL (14.0-18.0); Mean Corpuscular Hemoglobin 26.5 pg (27.0-31.0); Mean Corpuscular Volume 82.8 fL (78.0-98.0); Platelet Count 248 10x3/uL (130-400); Red Blood Cell (RBC) Count 4.65 mill/uL (4.70-6.10); White Blood Cell (WBC) Count 6.28 10x3/uL (4.8-10.8)
[2025-04-15 20:47] LABS: ALT (SGPT) 24 U/L (Less than 45); AST (SGOT) 30 U/L (11-34); Albumin 3.4 g/dL (3.1-4.5); Alkaline Phosphatase 84 U/L (40-110); Anion Gap 15 mmol/L (10-20); BUN (Urea Nitrogen) 11 mg/dL (8.4-25.7); Bilirubin, Total 0.6 mg/dL (0.3-1.2); Calc. Creatinine Clearance 0 mL/min (70-130); Calcium 8.8 mg/dL (7.8-10.44); Carbon Dioxide 23 mmol/L (23-31); Chloride 106 mmol/L (98-107); Globulin 3.0 g/dL (2.4-3.5); Glucose 130 mg/dL (83-110); Potassium 3.7 mmol/L (3.5-5.1); Sodium 140 mmol/L (136-145)
[2025-04-15] MEDS ORDERED: Metoclopramide HCl 10 MG (2 mL) VIAL ONE (20:51)
[2025-04-15] MEDS ORDERED: diphenhydrAMINE 50 MG/ML VIAL ONE (20:51)
[2025-04-15 21:14] LABS: Magnesium 1.9 mg/dL (1.6-2.6)
[2025-04-16] MEDS ORDERED: Senokot S 8.6-50 MG TAB PO PRN (02:03)
[2025-04-16] MEDS ORDERED: Acetaminophen 325 MG TAB PO PRN (02:03)
[2025-04-16] MEDS ORDERED: Ondansetron PF 4 MG/2 ML Vial IVP PRN (02:03)
[2025-04-16] MEDS ORDERED: Melatonin 3 MG TAB PO PRN (02:03)
[2025-04-16] MEDS ORDERED: Dextrose 50% Abboject 50 ML SYRINGE SLOW IVP PRN (02:12)
[2025-04-16] MEDS ORDERED: Glucagon 1 MG/ML KIT IM PRN (02:12)
[2025-04-16] MEDS ORDERED: Electrolyte Replacement Protocol 1 EACH FS SCH (02:15)
[2025-04-16] MEDS: HYDROcodone/Acetaminophen 5/325 mg Tablet PO PRN (03:58)
[2025-04-16 05:00] VITALS: BMI 23.6
[2025-04-16 05:06] LABS: #Basophils 0.06 10x3/uL (0.0-0.2); #Eosinophils 0.24 10x3/uL (0.0-0.7); #Monocytes 0.71 10x3/uL (0.11-0.59); #Neutrophils 3.24 10x3/uL (1.40-6.50); %Basophils 1.0 % (0.0-1.0); %Eosinophils 3.9 % (0.0-10.0); %Lymphocytes 30.9 % (21.0-51.0); %Monocytes 11.5 % (0.0-10.0); %Neutrophils 52.4 % (42.0-75.0); Hematocrit 37.9 % (42.0-52.0); Hemoglobin 11.8 g/dL (14.0-18.0); Mean Corpuscular Hemoglobin 26.4 pg (27.0-31.0); Mean Corpuscular Volume 84.8 fL (78.0-98.0); Platelet Count 215 10x3/uL (130-400); Red Blood Cell (RBC) Count 4.47 mill/uL (4.70-6.10); White Blood Cell (WBC) Count 6.18 10x3/uL (4.8-10.8)
[2025-04-16 05:44] LABS: ALT (SGPT) 24 U/L (Less than 45); AST (SGOT) 30 U/L (11-34); Albumin 3.5 g/dL (3.1-4.5); Alkaline Phosphatase 85 U/L (40-110); Anion Gap 14 mmol/L (10-20); BUN (Urea Nitrogen) 8 mg/dL (8.4-25.7); Bilirubin, Total 0.8 mg/dL (0.3-1.2); Calc. Creatinine Clearance 72 mL/min (70-130); Calcium 9.1 mg/dL (7.8-10.44); Carbon Dioxide 27 mmol/L (23-31); Cardiac Risk 2.4 (Less than 4.5); Chloride 102 mmol/L (98-107); Cholesterol 72 mg/dl (< 200 Desired); Globulin 3.3 g/dL (2.4-3.5); Glucose 120 mg/dL (83-110); HDL Cholesterol 30 mg/dL (>60 Neg Risk); LDL Cholesterol, Calculated 29 mg/dL; Potassium 3.6 mmol/L (3.5-5.1); Sodium 139 mmol/L (136-145); Triglycerides 65 mg/dL (Less than 150)
[2025-04-16] MEDS: Magnesium 2 GM/50 ML(in water) 2 GM in Premix 1 BAG IVPB SCH (08:44)
[2025-04-16] MEDS: Enoxaparin 40 MG (0.4 mL) SYRINGE SC SCH (08:46)
[2025-04-16] MEDS: Aspirin 81 mg Enteric Coated Tablet PO SCH (08:46)
[2025-04-16] MEDS: Metoprolol Succinate XL 25 MG ER.TAB PO SCH (08:46)
[2025-04-17 05:44] LABS: Anion Gap 16 mmol/L (10-20); BUN (Urea Nitrogen) 10 mg/dL (8.4-25.7); Calc. Creatinine Clearance 93 mL/min (70-130); Calcium 8.9 mg/dL (7.8-10.44); Carbon Dioxide 24 mmol/L (23-31); Chloride 104 mmol/L (98-107); Glucose 105 mg/dL (83-110); Magnesium 1.9 mg/dL (1.6-2.6); Potassium 4.3 mmol/L (3.5-5.1); Sodium 140 mmol/L (136-145)
[2025-04-17] MEDS: Magnesium 2 GM/50 ML(in water) 2 GM in Premix 1 BAG IVPB SCH (09:22)
[2025-04-17] MEDS ORDERED: hydrALAZINE 20 MG/ML VIAL SLOW IVP PRN (11:49)
[2025-04-17] MEDS: hydrALAZINE 20 MG/ML VIAL SLOW IVP SCH (13:10)
[2025-04-17 15:34] VITALS: BP 131/64; TEMP 98.5
== END 2025-04-17 17:45 | disposition left against medical advice (07) | DRG 312 ==
LOC: ERS 20:01 → 2NO 04-16 01:59 → OBSVTOIN 04-16 16:14
PROVIDERS: ADMIT Student in an Organized Health Care Education/Training Program; ATTEND Student in an Organized Health Care Education/Training Program
DX: I95.1 Orthostatic hypotension (principal); I48.0 Paroxysmal atrial fibrillation; N40.0 Benign prostatic hyperplasia without lower urinary tract symptoms; E11.9 Type 2 diabetes mellitus without complications; E78.5 Hyperlipidemia, unspecified; I50.9 Heart failure, unspecified; D64.9 Anemia, unspecified; Z90.49 Acquired absence of other specified parts of digestive tract; Z98.890 Other specified postprocedural states; Z95.0 Presence of cardiac pacemaker; Z95.1 Presence of aortocoronary bypass graft; Z53.29 Procedure and treatment not carried out because of patient's decision for other reasons; Z79.82 Long term (current) use of aspirin; Z79.899 Other long term (current) drug therapy
CPT/HCPCS: 36415; 36416; 70450; 71045; 71275; 80048; 80053; 80061; 83036; 83735; 83880; 84443; 84484; 85025; 93005; 93306; 93880; 96365; 96372; 96374; 96375; G0378; J1200; J1650; J2765; J3475; Q9967